=== PATIENT | male | born 1990 | race Caucasian/White ===

== ENCOUNTER 2017-03-12 20:19 | Inpatient (IN) ==
[2017-03-12] MEDS ORDERED: NS 1,000 ML IV ONE (21:00)
[2017-03-12 21:07] LABS: MANUAL DIFF NEEDED? NO
[2017-03-12 21:10] LABS: BASO% 0.2 % (0.0-0.8); EOS# 0.04 X1000 (0.0-0.7); EOS% 0.4 % (0.0-10.0); HEMATOCRIT 45.7 % (42.0-52.0); HEMOGLOBIN 16.2 g/dL (14.0-18.0); IMM GRAN# 0.03 X1000 (0.0-0.04); IMM GRAN% 0.3 % (0.0-0.5); LYMPH# 1.51 X1000 (1.2-3.4); LYMPH% 16.2 % (20.5-51.1); MCH 30.3 PG (27-31); MCHC 35.4 g/dL (33-37); MCV 85.6 FL (81-99); MONO# 0.82 X1000 (0.11-0.59); MONO% 8.8 % (1.7-9.3); MPV 11.3 FL (7.4-10.4); NEUT% 74.1 % (42.2-75.2); PLT 225 X1000 (130-400); RBC 5.34 XMIL (4.7-6.1)
--- NOTE | 2017-03-12 21:35 | Diag Imaging Result Doc PS360 ---
EXAM : HEAD/C-SPINE W/O CONTRAST HISTORY: weakness, AMS, fall TECHNIQUE: CT brain without. CT cervical spine without. Dose reduction protocol. COMPARISON: None. FINDINGS: Head: No parenchymal hemorrhage. No epidural or subdural hematoma. No subarachnoid hemorrhage. No mass identified on this noncontrasted exam. No hydrocephalus. No sinus opacification. Cervical spine: There is good alignment to the cervical spine. No precervical soft tissue swelling. No subluxation. No fracture. IMPRESSION: Head: No hemorrhage. No injury. Cervical spine: No acute fracture. Electronically signed by Flavio Silver 03/12/2017 9:33 PM
[2017-03-12 21:37] LABS: AGAP 18; ALBUMIN 4.7 g/dL (3.5-5.0); ALKALINE PHOSPHATASE 102 U/L (32-122); BUN 8 mg/dL (8-22); CHLORIDE 100 mmol/L (98-107); COSMO 281; GOT 29 U/L (10-34); GPT 45 U/L (10-44); POTASSIUM 4.3 mmol/L (3.5-5.1); SODIUM 142 mmol/L (136-145); TCO2 24 mmol/L (25-35)
[2017-03-12 21:58] LABS: CK INDEX 5.8 (0.0-2.5); CK-MB 14.92 ng/mL (0.0-5.0)
--- NOTE | 2017-03-12 22:08 | Diag Imaging Result Doc PS360 ---
EXAM: CHEST-1 VIEW HISTORY: weakness, AMS TECHNIQUE: Portable upright COMPARISON: None. FINDINGS: The lungs are well expanded. The heart is not enlarged. The vessels are not distended. There are no infiltrates. No effusion identified. IMPRESSION: Negative exam.. Electronically signed by Flavio Silver 03/12/2017 10:05 PM
[2017-03-12] MEDS ORDERED: ATIVAN ONE (22:21)
[2017-03-12 22:41] LABS: URINE CULTURE NEEDED? NO; URINE MICRO REVIEW NEEDED? NO; URINE SOURCE CATH
[2017-03-12 22:45] LABS: BILIRUBIN URINE NEGATIVE (NEGATIVE); BLOOD URINE NEGATIVE (NEGATIVE); COLOR STRAW; GLUCOSE URINE NEGATIVE (NEGATIVE); LEUKOCYTES URINE NEGATIVE (NEGATIVE); NITRITE URINE NEGATIVE (NEGATIVE); PH URINE 5.5; PROTEIN URINE NEGATIVE (NEGATIVE); TURBIDITY URINE CLEAR (CLEAR); UROBILINOGEN URINE NORMAL (NORMAL)
[2017-03-12 22:46] LABS: UR EPITHELIAL CELLS <10 /HPF (<10); URINE BACTERIA NEGATIVE /HPF; URINE RBC <10 /HPF (<10); URINE WBC <10 /HPF (<10)
[2017-03-12 23:11] LABS: UR BARBITUATES QUAL NONE DETECTED (NONE DETECT); UR BENZODIAZEPIN QUAL NONE DETECTED (NONE DETECT); UR CANNABINOIDS QUAL NONE DETECTED (NONE DETECT); UR COCAINE QUAL NONE DETECTED (NONE DETECT); UR METHADONE QUAL NONE DETECTED (NONE DETECT); UR OPIATES QUAL NONE DETECTED (NONE DETECT); UR OXYCODONE QUAL NONE DETECTED (NONE DETECT); UR PCP QUAL NONE DETECTED (NONE DETECT)
--- NOTE | 2017-03-12 23:41 | PROVIDER DOCUMENTATION ---
This chart was entered by Lizett Anderson Scribe, acting as scribe for Guanaco Paulino PA. HPI-Syncope/Dizziness - General Chief Complaint: Syncope Stated Complaint: DIZZY Time Seen by Provider: 03/12/17 20:34 Source: patient Allergies/Adverse Reactions: Patient Allergies Allergy/AdvReac Type Severity Reaction Status Date / Time No Known Allergies Allergy Verified 03/12/17 20:55 Home Medications: Home Medication List Medication Instructions Recorded Confirmed Last Taken Type NK [No Home Medications] 03/12/17 03/12/17 Unknown History - History of Present Illness-Syncope/Dizzy Nature of Presenting Problem: 26 year old M presents to the ED with a cc of high blood pressure. PT staets that [facility] and began not feeling good. PT has his blood pressure taken and it was high. EMS called and pt told them that he did not want to go and he wanted to go home. Pt was then found passed out in his truck in the parking lot. PD was called and told pt that he had to come to the ED. On arrival, pt is very lethargic and having a hard time staying awake. PT denies any drug use. Prior Episodes: reports: single episode today Onset/Duration: reports: this evening Timing: reports: still present Position/Activity at time of episode: reports: sitting Context: reports: became unresponsive Loss of Consciousness: unsure Location of injury. (If syncope resulted in an injury.): reports: none Recently Seen Here or By Another Healthcare Provider: No Review of Systems - Adult - REVIEW OF SYSTEMS - ADULT Constitutional: denies: chills, fever Eyes: reports: no symptoms reported Ears, Nose, Mouth & Throat: reports: no symptoms reported Cardiovascular: denies: chest pain, palpitations Respiratory: denies: cough, shortness of breath Gastrointestinal: denies: nausea, vomiting Genitourinary: reports: no symptoms reported Musculoskeletal: reports: no symptoms reported Integumentary: denies: skin sores/ulcer, skin thickening Neurological: reports: syncope. denies: tremors Psychiatric: reports: no symptoms reported Endocrine: reports: no symptoms reported Hematologic/Lymphatic: reports: no symptoms reported Allergic/Immunologic: reports: no symptoms reported All Other Systems: Reviewed and Negative Past History - Adult - PAST MEDICAL HISTORY-ADULT Review of Records: reports: Nursing Assessment Review, Medications Reviewed Major Childhood Illnesses: reports: denies history Musculoskeletal: reports: intervertebral disc disease Psychiatric: reports: depression - PRIOR SURGERIES/PROCEDURES Surgical/Procedure History: reports: orthopedic (extremity), back/neck - IMMUNIZATION STATUS Childhood Immunizations: See Nurse Assessment Flu Vaccine: See Nurse Assessment - SOCIAL HISTORY Smoking: non-smoker Substance Use: none/never Alcohol Use Frequency: never Physical Exam-General - PHYSICAL EXAM-ADULT Initial Vital Signs Reviewed: Yes - CONSTITUTIONAL General Appearance: lethargic - EYES Eyes: PERRL/EOMI - HEAD, EARS, NOSE, MOUTH & THROAT HENMT: normocephalic/atraumatic - NECK Neck: non-tender - RESPIRATORY Respiratory: chest non-tender, lungs clear, normal breath sounds - CARDIOVASCULAR Cardiovascular: normal peripheral pulses, regular rate, rhythm, no edema - GASTROINTESTINAL (ABDOMEN) Abdominal Exam: soft - MUSCULOSKELETAL Back Exam: normal inspection Extremity: normal range of motion, non-tender - SKIN Integumentary: normal color, normal turgor, warm/dry - NEUROLOGIC Neurologic: grossly normal, no motor/sensory deficits, other (difficult to get an entire physical due to mental state) Progress - PLAN OF CARE/RESULTS Progress/Plan/Lab Results: Vital Signs - 8 hr 03/12/17 20:22 03/12/17 21:24 03/12/17 21:28 Temperature 98.3 F 98.2 F Pulse Rate 76 72 66 Respiratory Rate 18 14 17 Blood Pressure 162/89 142/81 144/75 O2 Sat by Pulse Oximetry 100 96 100 03/12/17 22:46 03/12/17 23:31 Temperature Pulse Rate 67 67 Respiratory Rate 14 16 Blood Pressure 141/65 127/58 O2 Sat by Pulse Oximetry 96 94 L Laboratory Results - last 24 hr 03/12/17 03/12/17 03/12/17 20:50 20:50 20:50 WBC 9.33 RBC 5.34 Hgb 16.2 Hct 45.7 MCV 85.6 MCH 30.3 MCHC 35.4 RDW Std Deviation 11.9 Plt Count 225 MPV 11.3 H Immature Gran % (Auto) 0.3 Neut % (Auto) 74.1 Lymph % (Auto) 16.2 L [place] % (Auto) 8.8 Eos % (Auto) 0.4 Baso % (Auto) 0.2 Immature Gran # (Auto) 0.03 Neut # (Auto) 6.91 H Lymph # (Auto) 1.51 [place] # (Auto) 0.82 H Eos # (Auto) 0.04 Baso # (Auto) 0.02 D-Dimer Sodium Potassium Chloride Carbon Dioxide Anion Gap BUN Creatinine Estimated GFR/1.73 m2 BUN/Creatinine Ratio Glucose Calculated Osmolality Calcium Magnesium Total Bilirubin AST ALT Alkaline Phosphatase Creatine Kinase 256 H Creatine Kinase Index 5.8 H CK-MB (CK-2) 14.92 H Troponin T 0.019 Total Protein Albumin Globulin Albumin/Globulin Ratio Urine Source Urine Color Urine Turbidity Urine pH Ur Specific [place] Urine Protein Ur Glucose (Stick) Ur Ketones (Stick) Urine Blood Urine Nitrite Urine Bilirubin Urobilinogen Dipstick Urine Leukocytes Urine WBC (Auto) Urine RBC (Auto) U Epithel Cells (Auto) Urine Bacteria (Auto) Urine Opiates Screen Ur Oxycodone Screen Ur Methadone, Qual Ur Barbiturates Screen Ur Phencyclidine Scrn U Benzodiazepines Scrn Urine Cocaine Screen U Cannabinoids Screen Plasma/Serum Ethyl Alc 03/12/17 03/12/17 03/12/17 20:50 20:50 20:50 WBC RBC Hgb Hct MCV MCH MCHC RDW Std Deviation Plt Count MPV Immature Gran % (Auto) Neut % (Auto) Lymph % (Auto) [place] % (Auto) Eos % (Auto) Baso % (Auto) Immature Gran # (Auto) Neut # (Auto) Lymph # (Auto) [place] # (Auto) Eos # (Auto) Baso # (Auto) D-Dimer 0.43 Sodium 142 Potassium 4.3 Chloride 100 Carbon Dioxide 24 L Anion Gap 18 BUN 8 Creatinine 0.9 Estimated GFR/1.73 m2 > 60 BUN/Creatinine Ratio 9 Glucose 93 Calculated Osmolality 281 Calcium 10.0 Magnesium 2.0 Total Bilirubin 0.80 AST 29 ALT 45 H Alkaline Phosphatase 102 Creatine Kinase Creatine Kinase Index CK-MB (CK-2) Troponin T Total Protein 7.0 Albumin 4.7 Globulin 2.3 Albumin/Globulin Ratio 2.0 Urine Source Urine Color Urine Turbidity Urine pH Ur Specific [place] Urine Protein Ur Glucose (Stick) Ur Ketones (Stick) Urine Blood Urine Nitrite Urine Bilirubin Urobilinogen Dipstick Urine Leukocytes Urine WBC (Auto) Urine RBC (Auto) U Epithel Cells (Auto) Urine Bacteria (Auto) Urine Opiates Screen Ur Oxycodone Screen Ur Methadone, Qual Ur Barbiturates Screen Ur Phencyclidine Scrn U Benzodiazepines Scrn Urine Cocaine Screen U Cannabinoids Screen Plasma/Serum Ethyl Alc 03/12/17 03/12/17 22:25 22:25 WBC RBC Hgb Hct MCV MCH MCHC RDW Std Deviation Plt Count MPV Immature Gran % (Auto) Neut % (Auto) Lymph % (Auto) [place] % (Auto) Eos % (Auto) Baso % (Auto) Immature Gran # (Auto) Neut # (Auto) Lymph # (Auto) [place] # (Auto) Eos # (Auto) Baso # (Auto) D-Dimer Sodium Potassium Chloride Carbon Dioxide Anion Gap BUN Creatinine Estimated GFR/1.73 m2 BUN/Creatinine Ratio Glucose Calculated Osmolality Calcium Magnesium Total Bilirubin AST ALT Alkaline Phosphatase Creatine Kinase Creatine Kinase Index CK-MB (CK-2) Troponin T Total Protein Albumin Globulin Albumin/Globulin Ratio Urine Source CATH Urine Color STRAW Urine Turbidity CLEAR Urine pH 5.5 Ur Specific [place] 1.000 Urine Protein NEGATIVE Ur Glucose (Stick) NEGATIVE Ur Ketones (Stick) NEGATIVE Urine Blood NEGATIVE Urine Nitrite NEGATIVE Urine Bilirubin NEGATIVE Urobilinogen Dipstick NORMAL Urine Leukocytes NEGATIVE Urine WBC (Auto) <10 Urine RBC (Auto) <10 U Epithel Cells (Auto) <10 Urine Bacteria (Auto) NEGATIVE Urine Opiates Screen NONE DETECTED Ur Oxycodone Screen NONE DETECTED Ur Methadone, Qual NONE DETECTED Ur Barbiturates Screen NONE DETECTED Ur Phencyclidine Scrn NONE DETECTED U Benzodiazepines Scrn NONE DETECTED Urine Cocaine Screen NONE DETECTED U Cannabinoids Screen NONE DETECTED Plasma/Serum Ethyl Alc Orders Category Date Time Status Saline Loc NOW Care 03/12/17 20:59 Active CHEST-1 VIEW [RAD] Stat Exams 03/12/17 20:59 Completed HEAD/C-SPINE W/O CONTRAST [CT] Stat Exams 03/12/17 21:00 Completed ALCOHOL BLOOD Stat Lab 03/12/17 20:50 Completed CBC WITH ELECTRONIC DIFF [HEME] Stat Lab 03/12/17 20:50 Completed CK PROFILE [SP CHEM] Stat Lab 03/12/17 20:50 Completed CK PROFILE [SP CHEM] Stat Lab 03/12/17 23:32 Uncollected COMPREHENSIVE METABOLIC PANEL [CHEM] Stat Lab 03/12/17 20:50 Completed D-DIMER [CHEM] Stat Lab 03/12/17 20:50 Completed MAGNESIUM [CHEM] Stat Lab 03/12/17 20:50 Completed TROPONIN T Stat Lab 03/12/17 20:50 Completed TROPONIN T Stat Lab 03/12/17 23:32 Uncollected URINALYSIS W/POSS RFLX CULT-1 [URINALYSIS] Stat Lab 03/12/17 22:25 Completed URINE DRUG SCREEN Stat Lab 03/12/17 22:25 Results 0.9% Sodium Chloride Inj [Ns] 1,000 ml Med 03/12/17 21:00 Discontinued IV 999 mls/hr Lorazepam [Ativan] Med 03/12/17 22:21 Discontinued 2 mg .ROUTE .STK-MED ONE EKG [EKG] Stat Ther 03/12/17 20:53 Ordered EKG [EKG] Stat Ther 03/12/17 23:32 Ordered Pt keeps saying that he wants to leave and go home and is trying to leave the ED. Pt is refusing to give a urine sample Pt continues to be altered in the room. He has tried to get up and leave several times even though he is passing out in the bed. He keeps stating that he wants to drive to [place]. This pt is not able to drive at this time and he was sedated because he continued to fight c the nursing staff. Will admit for AMS. Result Diagrams: 03/12/17 20:50 03/12/17 20:50 - EKG 1 Time of EKG reading by physician:: 20:40 EKG Read and Signed by:: Chet Muñoz EKG Interpretation (*Must complete 3 of following elements*): Normal Rate: 65 Rhythm: NSR Comments: early repolarization - CONSULTS/PCP/HOSPITALIST Notification #1 *Consult/PCP/Hospitalist*: Dr. Silveira Time Discussed: 23:39 Consult Disposition: Admit Departure - Departure Date of Disposition Decision: 03/12/17 Time of Disposition Decision: 23:40 DIAGNOSIS: Altered mental status, unspecified Qualifiers: Altered mental status type: disorientation Qualified Code(s): R41.0 - Disorientation, unspecified Disposition: ADMITTED INPATIENT 09 Certified Medical Emergency: Emergent Condition: Stable Referrals and Follow-Ups: None,PCP [Primary Care Provider] - - Critical Care Note This patient required my direct & personal management of CC.: No Attestation - Physician/ RIRI Attestation Patient care was provided by Advanced Practice Provider:: Yes Advanced Practice Provider:: Guanaco Paulino Advanced Practice Provider documentation review:: The Mid-level provider documentation, treatment plan and medical decision making was reviewed by the physician who agrees with all treatment and medical decision making by the MLP. The physician spent face to face time with patient:: Yes Advanced Practice Provider documentation review:: Supervising physician onsite and consulted in the evaluation and care of this patient. The physician did have a face to face encounter with the patient. This chart was documented by the indicated scribe, (Lizett Anderson Scribe) and accurately reflects the services I performed and decisions made by Jefferson sanz Steven Wesley, PA, as attested by the provider's signature.
[2017-03-13 00:01] LABS: ALLEN TEST YES; BLOOD TYPE ARTERIAL; DRAW SITE R RADIAL; METHB 1.1 % (0.0-1.5); O2(CT) 20.5 mL/dL (15.0-23.0); PCO2(98.6) 40 mmHg (35-45); PO2(98.6) 78 mmHg (60-100); SAMPLE BLOOD; THB 15.3 g/dL (11.5-17.4); pH(98.6) 7.43 (7.35-7.45)
[2017-03-13 00:02] LABS: MODALITY ROOM AIR
[2017-03-13 00:46] LABS: UR AMPHETAMINES QUAL NONE DETECTED (NONE DETECT)
[2017-03-13] MEDS ORDERED: ZOFRAN IV PRN (02:49)
[2017-03-13] MEDS ORDERED: D50W SYRINGE ONE (03:16)
[2017-03-13] MEDS ORDERED: SODIUM CHLORIDE 0.9% 10 ML ONE (03:17)
[2017-03-13] MEDS: NS 1,000 ML IV SCH ×3 (03:31→19:13)
--- NOTE | 2017-03-13 04:01 | HISTORY AND PHYSICAL ---
CHIEF COMPLAINT: Near syncope. HISTORY OF PRESENT ILLNESS: A 26-year-old male presents to the emergency room stating his complaint is blood pressure. States he was [facility] the community [facility], started having back pain related to herniated disks. Apparently, the patient's blood pressure was taken and high. EMS was called and the patient told them that he did not want to go to the hospital. He wanted to go home. Patient was then found passed out in his truck in the parking lot. Police department was called, told the help patient that he had to come to the ER. On arrival, he was lethargic, having a difficult time staying awake. He denies any illicit drug use or abuse. However, he states that he has been seen at [place] and URINALYSIS, eventually being diagnosed with conversion disorder at [facility]. His laboratory data was grossly normal other than an elevated CK of 256, a CK index of 5.8, and a CK-MB of 14.92. Troponin was 0.019. The patient is able to answer all questions appropriately. However, he does keep his eyes closed and states over and over that he wants to go home. His blood pressure was 162/89 at the time of arrival. His urine drug screen was negative. He will be admitted in observation status for further evaluation and treatment. PAST MEDICAL HISTORY: 1. Low back pain due to herniated disks. 2. Questionable conversion disorder. 3. Depression with no treatment. PREVIOUS SURGICAL HISTORY: The patient states that he had "laser back surgery". SOCIAL HISTORY: He lives with his parents. Unemployed related to back pain. Does not go to school. Denies tobacco, alcohol, or illicit drug use or abuse. FAMILY HISTORY: Denied any chronic health issues in parents. ALLERGIES: No known drug allergies. HOME MEDICATIONS: No home medications. REVIEW OF SYSTEMS: Fourteen point review of systems conducted with the patient. He denied chest pain, nausea, vomiting, diarrhea, constipation, genitourinary complaint. Was positive for lower back pain. Denied headache. Positive for dizziness. However, he denies loss of consciousness. PHYSICAL EXAMINATION: VITAL SIGNS: Temperature 98.2 degrees, pulse 73, respirations 21, blood pressure 122/48, oxygen saturation 97% on room air. GENERAL: A 26-year-old, male lying on the ER stretcher. Appears to have a hard time keeping his eyes open for conversation but answers all questions appropriately. He is oriented x3. He is able follow all commands. HEENT: Head is atraumatic, normocephalic. Pupils equal, round, react to light. Extraocular eye movement intact. Sclerae are anicteric. Conjunctivae are pink. Oral mucosa is moist. NECK: Supple. No JVD. No thyromegaly. Trachea is midline. No cervical lymphadenopathy. CARDIAC: S1-S2 appreciated. No murmurs, gallops, rubs. LUNGS: Clear to auscultation. No rhonchi, wheezes, or rales. Symmetrical rise and fall with respirations. ABDOMEN: Soft, nondistended, nontender. Bowel sounds present in all 4 quadrants, normoactive. No pulsatile mass. No organomegaly. EXTREMITIES: No clubbing, cyanosis, or edema. There are 2+ pedal pulses. NEUROLOGICAL: Answers all questions appropriately. Does seem somewhat somnolent, closing his eyes several times during conversation. However, he was interviewed after midnight. States that he just wants to go home. Does not want admission. GENITOURINARY: Patient voids, otherwise deferred. SKIN: Warm, dry, intact. No acute lesions or rash. DIAGNOSTIC DATA: Chest x-ray NAD. CT of the head and C-spine NAD. LABORATORY DATA: CBC within normal limits. D-dimer 0.43. ABG within normal limits. ALT 45. CK 256, CK index 5.8, CK-MB 14.92, troponin 0.019. Urine and toxicology screen unremarkable. ASSESSMENT AND PLAN: 1. Syncope versus near syncope of unknown etiology. Patient denies drugs. He did have a mild elevation of his CK, CK index, and CK-MB. We will place in observation status on telemetry. Give gentle fluid hydration. 2. Questionable conversion disorder. We will monitor. 3. Depression without treatment, aware. 4. Elevated CK profile. We will consult Dr. Bonilla. Echocardiogram in the morning. Trend cardiac enzymes. 5. Chronic back pain, aware. 6. Further recommendations per patient's clinical course. Dictated by CORY Lind for Kenneth Silveira MD Seen and examined by me; discussed case with [employer]. cc: CORY Lind MD [facility]
--- NOTE | 2017-03-13 05:07 | EKG Report ---
Test Performed on : 03/12/2017 11:46:28 PM Test Reason : repeat Blood Pressure : / mmHG Vent. Rate : 074 BPM Atrial Rate : 074 BPM P-R Int : 140 ms QRS Dur : 100 ms QT Int : 378 ms P-R-T Axes : 054 037 042 degrees QTc Int : 419 ms Normal sinus rhythm. Early repolarization Normal ECG No previous ECGs available Unconfirmed Result
[2017-03-13] MEDS ORDERED: LOVENOX SUBQ SCH (06:00)
--- NOTE | 2017-03-13 07:04 | EKG Report ---
Test Performed on : 03/13/2017 06:00:28 AM Test Reason : chest pain Blood Pressure : / mmHG Vent. Rate : 058 BPM Atrial Rate : 058 BPM P-R Int : 144 ms QRS Dur : 100 ms QT Int : 384 ms P-R-T Axes : 047 047 031 degrees QTc Int : 376 ms Sinus bradycardia. Early repolarization Otherwise normal ECG When compared with ECG of 12-MAR-2017 23:46, (Unconfirmed) Nonspecific T wave abnormality inferior lead III (now flat) Confirmed by Brian Paulino DO ([id number]) on 03/16/2017 7:51:56 PM
[2017-03-13 08:07] LABS: ALLEN TEST YES; BE 2.8 mmoll (-3.0-3.0); BLOOD TYPE ARTERIAL; DRAW SITE R RADIAL; METHB 1.2 % (0.0-1.5); MODALITY ROOM AIR; O2(CT) 22.5 mL/dL (15.0-23.0); PCO2(98.6) 40 mmHg (35-45); PO2(98.6) 112 mmHg (60-100); SAMPLE BLOOD; SAO2 99.5 % (95.0-100.0); THB 16.5 g/dL (11.5-17.4); pH(98.6) 7.44 (7.35-7.45)
--- NOTE | 2017-03-13 12:45 | CONSULTATION ---
DATE OF CONSULTATION: 03/13/2017 REASON FOR CONSULTATION: The patient is seen in consultation at the request of Dr. Tejada for evaluation of unresponsiveness. HISTORY OF PRESENT ILLNESS: This is a 26-year-old, right-handed male with history of low back pain and apparent recent diagnosis of conversion disorder at [facility], who was admitted yesterday with complaints that he needs to get his blood pressure evaluated. Apparently he was at the pool and he started having some back pain and his blood pressure was elevated at some point. He refused to go to the hospital. He was subsequently found passed out in his truck. On arrival to the ED he was lethargic and having a hard time staying awake. He has been asking to go home repeatedly since he has been here. He has had an episode where he had apparent loss of consciousness or unresponsiveness in front of the nurses, but he did not fall; he was helped to the bed. The nurse reports that there was sternal rub but he was not responding to that, although there was some facial grimace. The patient tells me that he has had long-standing back pain and has been trying to have surgery for this. He reports that the surgeons at [facility] said they would like to operate but he needs to be cleared from a psychiatric standpoint first. He says that he was hospitalized at [facility] about 2.5 months ago and diagnosed with conversion disorder, having similar symptoms to what he is having now, although he cannot further elaborate. He says he does not recall. He says for a while now he has been having periods at times where his back pain acutely gets so severe that it makes him feel like he is generally weak all over with a headache, confusion, and the sensation that he is going to pass out. He says if he lies down the sensations usually fade after about 30 minutes. He is not sure if he does sometimes pass out. He does report that he has passed out at times, at least once in doctor's office. He does not have a history of high blood pressure per his report. No history of seizures. PAST MEDICAL HISTORY: Low back pain reported to be due to herniated disk, reports a diagnosis of conversion disorder 2.5 months ago at [facility], possible depression. SOCIAL HISTORY: He says he lives alone. 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 The job was in [place]. Denies tobacco, alcohol, or illicit drug use. FAMILY HISTORY: Noncontributory. No seizures. ALLERGIES: No known drug allergies. HOME MEDICATION: None. REVIEW OF SYSTEMS: The balance of 12 was conducted and was positive only for the low back pain, headache, feeling generally weak, and confused. PHYSICAL EXAMINATION: Vital Signs: Afebrile since his admission. Blood pressure 113-162 over 40s to 90s. Pulse 58-76. Respirations 18. General: This is male, supine in bed, asleep apparently when I enter the room. No acute distress. HEENT: All is normal. Neck: Supple. No meningismus. Trachea midline. Cardiovascular: Regular rate and rhythm. Intact pulses. No edema. Lungs: No increased work of breathing. Normal chest rise and expansion. No audible wheezing or rales. Abdomen: Soft. He grimaces and moans out in pain to palpation but does not guard. Extremities: Warm and well perfused. No edema. Neurologic Exam: Mental status: He is asleep initially. Does not arouse to loud voice but does arouse to the addition of light tactile shoulder stimulation. He regards. He is slow to answer all questions and is whispering as well as stuttering at times. He is able to articulate his thought processes completely although, again, very slowly and with stuttering. He can give significant detail and history. Completely oriented with the exception of today's date which he was 1 day off. Naming is intact. Language is intact. Appropriately conversant. Attentive. Cranial nerves: PERRL, 3 mm both eyes. Conjugate gaze. Ocular movements are full. Visual mcintosh full to direct confrontational testing. Face is symmetric with equal activation, although he requires significant encouragement. Facial sensation intact. Tongue is midline. Palate elevates symmetrically. Shoulder shrug is full but requires encouragement. Motor exam: Normal bulk and tone. No drift. His strength is fully intact, 5/5 in the upper and lower extremities, both distally and proximally. There is no fatigable weakness. Sensory exam: There are no abnormalities to testing. Reflexes are 2+ symmetric in the upper extremities, 2 + of the right knee and ankle jerk, slight brisk 2+ left knee and ankle jerk. No clonus. Toes are downgoing. No Carmen's. Coordination: No incoordination was uncovered. DIAGNOSTICS: Head CT was personally reviewed. There are no acute findings. Cervical spine CT showed no acute fracture. EKG showed sinus bradycardia with a rate of 58 and early repolarization. Otherwise normal and unconfirmed result. Chest x-ray was negative. LABS: Reviewed fully in the chart. The CK on admission was 256, now 200. CK- MB 14.92. Troponin negative. TSH 3.61. ALT 45, AST normal. Chemistry panel otherwise unremarkable. Urinalysis and toxicology screen were negative. ASSESSMENT AND PLAN: This is a 26-year-old, right-handed, male with a history of low back pain, being followed at [facility] for this, and also he reports diagnosis of conversion disorder with similar symptoms to what he is presenting with today, this was about 2.5 months ago at [facility], presenting with complains of generalized weakness, headache, confusion, and lightheadedness with 1 spell of reported unresponsiveness in the hospital. His neurological exam is essentially nonfocal which is reassuring. He does require some encouragement on some of the testing. Head CT did not show any acute findings, also reassuring. Will obtain an EEG given his reports of feeling confused as well as his apparent unresponsiveness here in the hospital and possible events off and on for some time now at home, although I do not think that these are likely to be seizures. I have also requested records from [facility], particularly for his recent visit there that he reports he was diagnosed conversion disorder. Based on his negative head CT and essentially normal neurologic exam, I do not think we need to proceed with an MRI, at least at this time. Let's see what the records show; it is possible he recently had an MRI at [facility]. Thank you for this consultation. cc: Radha Villafana MD [facility]
--- NOTE | 2017-03-13 13:15 | CONSULTATION ---
DATE OF CONSULTATION: 03/13/2017 IMPRESSION: 1. Abnormal CPK-MB Index with normal serial troponins. Suspect likely noncardiac. ECG shows normal variant early repolarization. There has been no chest pain. 2. Chronic back discomfort. 3. Reported history of conversion disorder. 4. Reported fall following admission. Questionable pause. RECOMMENDATIONS: 1. Echocardiography. 2. If echocardiography normal, no further CV testing needed. HISTORY: This 26-year-old white male with past history of chronic back disorder and reported conversion disorder earlier this year was admitted to the emergency room because of back discomfort. Apparently, he had some episodes of syncope. Details are sketchy, and he tends to talk with his eyes closed in a very low voice. He relates he came to the hospital because of back pain and a markedly elevated blood pressure. He relates he is from [place], [place], and relates that he was swimming in the [place] area. His blood pressure became elevated, and he became concerned. EMS was called and the patient declined to go to the hospital. Patient relates that he was told that he had to come to the hospital. Records indicate that he had subsequently passed out in the parking lot several times, and the Police Department was called and assisted in convincing him to come to the emergency room. In emergency room, he was lethargic and had difficulty staying awake. However, his blood pressure was 162/89 at that time. There has been no chest pain. He is not aware of any previous cardiac problems. He was admitted for observation and reported while on the floor fell. He was brought to the ICU for close observation. It is noteworthy that he was hospitalized early this year in [place], [place], and subsequently had evaluation at [facility] and was felt to have conversion disorder. 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 He is currently unemployed. Laboratory data available from [place] indicates a similar CPK-MB index and a troponin of 0.019 at that time. PAST MEDICAL HISTORY: 1. 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 2. Conversion disorder as noted above. 3. Depression. PAST SURGICAL HISTORY: Laser back surgery. ALLERGIES: No known drug allergies. MEDICATIONS: He is on no medications prior to admission. SOCIAL HISTORY: He lives with his parents. 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 He does not smoke or drink alcohol. FAMILY HISTORY: Negative for premature coronary disease. REVIEW OF SYSTEMS: Pulmonary: Negative. Gastrointestinal: Negative. Constitutional: Negative. Remainder of review of systems negative/noncontributory. 14 total systems reviewed. PHYSICAL EXAMINATION: General: This is an adult male in no distress who, during the interview process, keeps his eyes closed and talks in a low voice. Vital Signs: As recorded include a heart rate of 95 with ECG monitor showing sinus rhythm. Blood pressure 110/60. HEENT: Extraocular muscles appear intact. Mucous membranes moist. Neck: Supple. No jugular venous distention. There are no carotid bruits. Chest: Clear to auscultation. Cardiac Exam: Reveals a regular rate and rhythm without appreciable murmur or gallop. Abdomen: Soft, nontender. Bowel sounds normal. Extremities: Without edema. Neurologic: Exam reveals him to be alert and fully oriented. Speech is fluent. He moves all 4 extremities equally well. Skin: Warm and dry. Psych: Exam reveals him to be somewhat anxious. He keeps his eyes closed and talks in a very low voice. EKG demonstrates sinus rhythm and normal variant early repolarization. cc: Jem Morejon MD
--- NOTE | 2017-03-13 14:08 | EEG REPORT ---
DATE: 03/13/2017 BACKGROUND INFORMATION/TECHNIQUE: A digitally recorded EEG is obtained with 1 additional channel for EKG. HISTORY OF PRESENT ILLNESS: A 26-year-old, right-handed, male admitted with altered mental status, periods of presyncope and/or syncope with lightheadedness, dizziness and headache, which come on when his low-back pain acutely worsens. He reports a recent diagnosis of conversion disorder at [facility] for similar symptoms. EEG is ordered to detect evidence of seizures or increased propensity for seizure. EEG FINDINGS: A well-formed 10 Hz posterior dominant alpha rhythm is noted symmetrically in the occipital regions and attenuates with eye opening. The background is well- organized and consists of mixed alpha and beta range frequencies. No abnormal diffuse slowing. No focal slowing. No epileptiform discharges and no seizures are seen. Hyperventilation was not performed. Photic stimulation induced a normal photic driving response. The patient becomes drowsy and enters into stage II sleep with qualitatively normal sleep architecture. EKG reveals regular R to R intervals. IMPRESSION AND CLINICAL CORRELATION: Normal routine EEG in the awake, drowsy, and sleep states. Of note, a normal EEG does not rule out epilepsy. Clinical correlation is advised. cc: MD Honey Moore MD [facility]
--- NOTE | 2017-03-13 14:15 | ECHO REPORT ---
ORDER DATE: 03/13/2017 INDICATION: Elevated CK index, syncope. FINDINGS: 1. Right atrium is mildly enlarged at 4.4 cm. 2. Mild tricuspid regurgitation. 3. Normal RV size and systolic function. 4. Mild pulmonic insufficiency. 5. Normal left atrial size at 3.6 cm. 6. No mitral prolapse. Trace mitral regurgitation. 7. Normal LV size, end-diastolic dimension of 4.9 cm. Mild left ventricular hypertrophy with a posterior and interventricular septal wall thickness 1.3 cm each. Normal LV systolic function. Estimated EF of 60% with normal wall motion. 8. Aortic valve opens well. No evidence of stenosis or insufficiency. The valve is trileaflet. 9. Aorta appears normal on visualized segments. 10. No pericardial effusion seen. cc: MD Yoseph Rdz CRNP
[2017-03-13 20:54] VITALS: BP 147/58
--- NOTE | 2017-03-23 13:26 | DISCHARGE SUMMARY ---
ADMISSION DATE: 03/13/2017 DISCHARGE DATE: 03/13/2017 FINAL DISCHARGE DIAGNOSES: 1. Near syncope. 2. Depression. 3. Conversion disorder. 4. Chronic back pain. CONSULTATIONS REQUESTED DURING THIS HOSPITAL STAY: 1. Cardiology consultation. 2. Neurology consultation. HOSPITAL COURSE: Mr. Pelayo is a 26-year-old male with a history of conversion disorder and syncope, who presented to the ER after having a syncopal episode. The patient was admitted to the Hospitalist Service and a 2-dimensional echocardiogram was done. It was noted to be normal. Cardiology also assessed the patient, as well as the neurologist. After a completely negative workup, this was discussed with the patient and the family, and they stated that whenever the patient is having a flare-up of his conversion disorder, he has syncopal episodes. It was recommended that the patient be discharged and to follow up with his psychiatrist and other physicians at [facility]. The patient was cleared for discharge on 03/13/2017, to follow up with his physicians at [facility]. DISCHARGE MEDICATIONS: None. FOLLOWUP INSTRUCTIONS: The patient has been advised to follow up at [facility] with his psychiatrist and general practitioner. cc: Honey Tejada MD
--- NOTE | 2017-05-17 10:32 | ED EKG INTERP ---
This chart was entered by Lizett Anderson Scribe, acting as scribe for Chet Muñoz MD. EKG Interpretation - EKG Time of EKG reading by physician:: 00:17 EKG Read and Signed by:: Chet Muñoz EKG Interpretation (*Must complete 3 of following elements*): Normal Rate: 74 Rhythm: NSR Comments: early repolarization Attestation - Physician/ RIRI Attestation Patient care was provided by Advanced Practice Provider:: Yes Advanced Practice Provider documentation review:: The Mid-level provider documentation, treatment plan and medical decision making was reviewed by the physician who agrees with all treatment and medical decision making by the MLP. The physician spent face to face time with patient:: No Advanced Practice Provider documentation review:: Supervising physician onsite and consulted in the evaluation and care of this patient. The physician did not have a face to face encounter with the patient. This chart was documented by the indicated scribe, (Lizett Anderson Scribe) and accurately reflects the services I performed and decisions made by me, Chet Muñoz MD, as attested by the provider's signature.
== END 2017-03-13 20:30 | disposition home or self-care (01) ==
LOC: ED 20:19 → 4N 03-13 02:38 → SUATTDRO 03-13 02:38 → ICU 03-13 08:15
PROVIDERS: ATTEND Internal Medicine

== ENCOUNTER 2019-07-25 06:00 | Inpatient (IN) ==
[2019-07-25] MEDS ORDERED: NS 1,000 ML IV ONE ×3 (06:23→08:58)
[2019-07-25] MEDS ORDERED: ROBITUSSIN-AC PO ONE (06:23)
[2019-07-25] MEDS ORDERED: TORADOL IV ONE (06:23)
--- NOTE | 2019-07-25 06:27 | PROVIDER DOCUMENTATION ---
HPI-General Adult - General Chief Complaint: General Adult Stated Complaint: GENERAL ILLNESS Time Seen by Provider: 07/25/19 06:01 Source: patient Allergies/Adverse Reactions: Patient Allergies Allergy/AdvReac Type Severity Reaction Status Date / Time No Known Allergies Allergy Verified 02/22/19 17:26 Home Medications: Home Medication List Medication Instructions Recorded Confirmed Last Taken Type Gabapentin 600 mg PO BID 02/22/19 07/25/19 06/22/19 22:00 History 600 mg Levothyroxine Sodium 125 mcg PO HS 02/22/19 07/25/19 06/22/19 22:00 History 125 mcg Omeprazole 40 mg PO DAILY 02/22/19 07/25/19 06/22/19 10:00 History 40 mg Promethazine [Phenergan] 25 mg PO Q6H PRN PRN #30 tab 03/06/19 07/25/19 Unknown Rx Tramadol [Ultram] 50 mg PO Q6H PRN PRN tab 03/06/19 07/25/19 06/23/19 04:20 Rx 50 mg Amlodipine Besylate [Norvasc] 5 mg PO DAILY 06/23/19 07/25/19 06/22/19 10:00 History 5 mg Baclofen [Lioresal] 10 mg PO TID 06/23/19 07/25/19 06/23/19 09:00 History 10 mg Benzonatate [Tessalon Perle] 100 mg PO Q8H PRN PRN 06/23/19 07/25/19 06/07/19 20:20 History 100 mg Carboxymethylcellulose Sodium 3 drp OPHTHALMIC (EYE) TID 06/23/19 07/25/19 06/22/19 20:00 History [Refresh Tears] 2 drops Duloxetine HCl 60 mg PO DAILY 06/23/19 07/25/19 06/22/19 10:00 History 60 mg Hydrocodone/Acetaminophen [Richardson 1 ea PO Q6H PRN PRN 06/23/19 07/25/19 06/22/19 05:16 History 10-325 Tablet] 1 tab Lamotrigine [Lamictal] 50 mg PO BID 06/23/19 07/25/19 06/23/19 09:00 History 100 mg Meclizine [Antivert] 12.5 mg PO DAILY 06/23/19 07/25/1906/22/19 10:00 History 12.5 mg Melatonin 12 mg PO HS 06/23/19 07/25/19 06/22/19 22:00 History 12 mg Naproxen 500 mg PO Q8H PRN PRN 06/23/19 07/25/19 06/21/19 02:50 History 500 mg Polyethylene Glycol 3350 17 gm PO DAILY 06/23/19 07/25/19 06/22/19 10:00 History 17 gm Valsartan 80 mg PO BID 06/23/19 07/25/19 06/22/19 17:00 History - History of Present Illness -Gen Adult Nature of Presenting Problems: Pt presents with cough and fever, started tonight, coming from NH, pt denies hollins, cp, sob, ap, n/v/d. Pt is lying in bed in no acute distress. Location of Pain/Injury: reports: none Pain Radiation: reports: no radiation Quality of Pain: reports: none Severity: reports: moderate Onset/Duration: reports: 1-3 hours ago Timing: reports: still present Context/Activities at Onset: reports: none Modifying Factors: improves with: nothing Associated Symptoms: reports: cough, fever/chills Similar Symptoms Previously?: No Recently seen or treated by another doctor?: No Review of Systems - Adult - REVIEW OF SYSTEMS - ADULT Constitutional: reports: see HPI Eyes: reports: no symptoms reported Ears, Nose, Mouth & Throat: reports: no symptoms reported Cardiovascular: reports: no symptoms reported Respiratory: reports: see HPI Gastrointestinal: reports: no symptoms reported Genitourinary: reports: no symptoms reported Musculoskeletal: reports: no symptoms reported Integumentary: reports: no symptoms reported Neurological: reports: no symptoms reported Psychiatric: reports: no symptoms reported Endocrine: reports: no symptoms reported Hematologic/Lymphatic: reports: no symptoms reported Allergic/Immunologic: reports: no symptoms reported All Other Systems: Reviewed and Negative Past History - Adult - PAST MEDICAL HISTORY-ADULT Review of Records: reports: Old Records Reviewed, Nursing Assessment Review, Medications Reviewed, Social history reviewed & non-contributory. Major Childhood Illnesses: reports: denies history Cardiovascular: reports: HTN Respiratory: reports: denies history Gastrointestinal: reports: denies history Obstetrical/Gynecological: reports: denies history Genitourinary: reports: denies history Musculoskeletal: reports: intervertebral disc disease Neurological: reports: denies history Psychiatric: reports: depression Endocrine/Immune: reports: denies history Other Conditions: reports: denies history - PRIOR SURGERIES/PROCEDURES Surgical/Procedure History: reports: hernia repair, orthopedic (extremity) (ann smith), back/neck - IMMUNIZATION STATUS Childhood Immunizations: See Nurse Assessment Flu Vaccine: See Nurse Assessment - FAMILY HISTORY Family History: reviewed, not pertinent Physical Exam-General - PHYSICAL EXAM-ADULT Initial Vital Signs Reviewed: Yes - CONSTITUTIONAL General Appearance: appears well - EYES Eyes: PERRL/EOMI - HEAD, EARS, NOSE, MOUTH & THROAT HENMT: normocephalic/atraumatic - NECK Neck: normal inspection - RESPIRATORY Respiratory: no respiratory distress, no accessory muscle use, crackles - CARDIOVASCULAR Cardiovascular: regular rate, rhythm - GASTROINTESTINAL (ABDOMEN) Abdominal Exam: normal bowel sounds, non tender, soft - LYMPHATIC Lymphatic: no adenopathy - MUSCULOSKELETAL Back Exam: normal inspection Extremity: normal inspection - SKIN Integumentary: normal color - NEUROLOGIC Neurologic: grossly normal - PSYCHIATRIC Psych/Mental Status: normal mood/affect Progress - PLAN OF CARE/RESULTS Progress/Plan/Lab Results: Vital Signs - 8 hr 07/25/19 06:14 Temperature 98.5 F Pulse Rate 120 H Respiratory Rate 22 Blood Pressure 108/56 O2 Sat by Pulse Oximetry 95 Orders Category Date Time Status Cardiac Monitoring DIRECTED Care 07/25/19 06:22 Ordered IV Insertion ORDERED Care 07/25/19 06:22 Ordered Notify MD of + Sepsis Screen NOW Care 07/25/19 06:22 Ordered Notify Physician As Ordered Care 07/25/19 06:22 Ordered CHEST-1 VIEW [RAD] Stat Exams 07/25/19 06:22 Ordered BLOOD CULTURE [BLDCUL] Stat Lab 07/25/19 06:22 Uncollected CBC WITH DIFF [HEME] Stat Lab 07/25/19 06:22 Uncollected CK PROFILE [SP CHEM] Stat Lab 07/25/19 06:22 Uncollected COMPREHENSIVE METABOLIC PANEL [CHEM] Stat Lab 07/25/19 06:22 Uncollected INFLUENZA SCREEN A/B Stat Lab 07/25/19 06:23 Uncollected LACTATE, PLASMA [CHEM] Q3H Lab 07/25/19 06:30 Uncollected LACTATE, PLASMA [CHEM] Q3H Lab 07/25/19 09:30 Uncollected LACTATE, PLASMA [CHEM] Q3H Lab 07/25/19 12:30 Uncollected PROTIME WITH INR [COAG] Stat Lab 07/25/19 06:22 Uncollected PTT [COAG] Stat Lab 07/25/19 06:22 Uncollected TROPONIN T Stat Lab 07/25/19 06:22 Uncollected URINALYSIS W/POSS RFLX CULT [URINALYSIS] Stat Lab 07/25/19 06:22 Uncollected Guaifenesin/Codeine [Robitussin-AC] Med 07/25/19 06:23 Once 10 ml PO NOW ONE Ketorolac [Toradol] Med 07/25/19 06:23 Once 30 mg IV NOW ONE Ns 1000 ml IV Bolus X1 Med 07/25/19 06:23 Ordered 0.9% Sodium Chloride Inj [Ns] 1,000 ml IV 999 mls/hr Oxygen Device Stat Oth 07/25/19 06:22 Ordered Result Diagrams: 07/25/19 06:10 07/25/19 06:10 - CONSULTS/PCP/HOSPITALIST Notification #1 *Consult/PCP/Hospitalist*: Jeaneth Time Discussed: 09:40 (Admit to Dr Pastor) Consult Disposition: Will see in ED - CHANGE OF SHIFT REPORT (ED Provider) 1 Report Given and Care Transferred to:: Dr. Bowden Time of Transfer: 07:00 Items Pending: Labs, XRAY Results Departure - Departure Date of Disposition Decision: 07/25/19 Time of Disposition Decision: 09:49 DIAGNOSIS: Sepsis Qualifiers: Sepsis type: sepsis due to unspecified organism Sepsis acute organ dysfunction status: without acute organ dysfunction Qualified Code(s): A41.9 - Sepsis, unspecified organism Disposition: ADMITTED INPATIENT 09 Certified Medical Emergency: Emergent Condition: Serious Referrals and Follow-Ups: Eric Bishop MD [Primary Care Provider] - - Critical Care Note This patient required my direct & personal management of CC.: No Attestation - Physician/ RIRI Attestation Patient care was provided by Advanced Practice Provider:: No The physician spent face to face time with patient:: Yes Advanced Practice Provider documentation review:: Supervising physician onsite and consulted in the evaluation and care of this patient. The physician did have a face to face encounter with the patient.
[2019-07-25 06:46] LABS: BASO# 0.01 X1000 (0.0-0.2); BASO% 0.1 % (0.0-0.8); EOS# 0.01 X1000 (0.0-0.7); EOS% 0.1 % (0.0-10.0); HEMATOCRIT 44.1 % (42.0-52.0); HEMOGLOBIN 15.3 g/dL (14.0-18.0); IMM GRAN# 0.02 X1000 (0.0-0.04); IMM GRAN% 0.2 % (0.0-0.5); LYMPH# 0.71 X1000 (1.2-3.4); LYMPH% 8.5 % (20.5-51.1); MCH 29.5 PG (27-31); MCHC 34.7 g/dL (33-37); MONO# 0.87 X1000 (0.11-0.59); MONO% 10.4 % (1.7-9.3); MPV 10.9 FL (7.4-10.4); NEUT# 6.73 X1000 (1.4-6.5); NEUT% 80.7 % (42.2-75.2); PLT 174 X1000 (130-400); RBC 5.19 XMIL (4.7-6.1); RDW 11.9 % (11.5-14.5); WBC 8.35 X1000 (4.8-10.8)
[2019-07-25 06:53] LABS: INR 0.96; PROTIME 12.9 Seconds (11.0-16.0)
[2019-07-25 06:54] LABS: PTT 25.7 Seconds (22.3-41.8)
--- NOTE | 2019-07-25 07:07 | Diag Imaging Result Doc PS360 ---
EXAM: CHEST-1 VIEW HISTORY: cough, fever TECHNIQUE: Single view COMPARISON: 06/23/2019 FINDINGS: Poor inspiratory effort. No cardiomegaly. There is mild vascular distention. No consolidation. No pleural effusions identified. IMPRESSION: Mild vascular prominence. No pneumonia. Electronically signed by Flavio Silver 07/25/2019 7:05 AM
[2019-07-25 07:16] LABS: AGAP 18; ALB/GLOB RATIO 2.5; ALBUMIN 4.3 g/dL (3.5-5.0); ALKALINE PHOSPHATASE 116 U/L (32-122); BUN 18 mg/dL (8-22); CALCIUM 9.1 mg/dL (8.8-10.2); CHLORIDE 100 mmol/L (98-107); CK PROFILE 91 U/L (24-204); COSMO 283; CREATININE 1.2 mg/dL (0.7-1.2); ESTIMATED GFR > 60; GLUCOSE 99 mg/dL (70-104); GOT 57 U/L (10-34); GPT 85 U/L (10-44); POTASSIUM 3.7 mmol/L (3.5-5.1); SODIUM 141 mmol/L (136-145); TCO2 23 mmol/L (25-35); TOTAL BILIRUBIN 0.66 mg/dL (0.20-1.00)
[2019-07-25 08:01] LABS: URINE SOURCE CLEAN CATCH
[2019-07-25 08:09] LABS: BILIRUBIN URINE NEGATIVE (NEGATIVE); BLOOD URINE NEGATIVE (NEGATIVE); COLOR YELLOW; GLUCOSE URINE NEGATIVE (NEGATIVE); KETONE URINE NEGATIVE (NEGATIVE); LEUKOCYTES URINE MODERATE (NEGATIVE); NITRITE URINE NEGATIVE (NEGATIVE); PH URINE 5.5; PROTEIN URINE NEGATIVE (NEGATIVE); SP GRAVITY URINE 1.016; TURBIDITY URINE CLEAR (CLEAR); UROBILINOGEN URINE 2 mg/dL (NORMAL)
[2019-07-25 08:10] LABS: UR EPITHELIAL CELLS <10 /HPF (<10); URINE BACTERIA NEGATIVE /HPF; URINE RBC <10 /HPF (<10)
[2019-07-25] MEDS ORDERED: ZOSYN 3.375 GM in NS 50 ML IV ONE (08:58)
[2019-07-25] MEDS ORDERED: VANCOMYCIN IV PER PHARMACY MISC SCH (09:00)
[2019-07-25] MEDS ORDERED: VANCOMYCIN 2,000 MG in NS 500 ML IV ONE (10:00)
[2019-07-25 10:33] LABS: FREE T4 1.39 ng/dL (0.93-1.70); TSH 1.18 uIUmL (0.27-4.20)
[2019-07-25] MEDS ORDERED: NEURONTIN PO SCH (10:33)
[2019-07-25] MEDS ORDERED: ROCEPHIN 1 GM in NS 50 ML IV SCH (10:33)
[2019-07-25] MEDS ORDERED: PRILOSEC PO SCH (10:33)
[2019-07-25] MEDS ORDERED: MIRALAX PO SCH (10:33)
[2019-07-25] MEDS ORDERED: CYMBALTA PO SCH (10:33)
[2019-07-25] MEDS ORDERED: TESSALON PO PRN (10:33)
[2019-07-25] MEDS ORDERED: ULTRAM PO PRN (10:33)
[2019-07-25] MEDS ORDERED: PHENERGAN PO PRN (10:33)
[2019-07-25] MEDS ORDERED: NAPROSYN PO PRN (10:33)
[2019-07-25] MEDS ORDERED: CLINDAMYCIN 600 MG/NS 600 MG/50 ML IVPB IV SCH (10:33)
[2019-07-25] MEDS ORDERED: TYLENOL PO PRN (10:33)
[2019-07-25] MEDS ORDERED: NORCO-10 PO PRN (10:33)
[2019-07-25] MEDS ORDERED: LAMICTAL PO SCH (10:33)
[2019-07-25] MEDS ORDERED: NORVASC PO SCH (10:33)
[2019-07-25] MEDS ORDERED: DIOVAN PO SCH (10:33)
[2019-07-25] MEDS ORDERED: ANTIVERT PO SCH (10:33)
--- NOTE | 2019-07-25 10:49 | HISTORY AND PHYSICAL ---
HISTORY: He described the evening before he had a dream. He dreamed he was throwing up and aspirating and he indeed woke up and he was throwing up and he felt like he did aspirate. He is complaining of feeling cold. He apparently had a temperature of 104 degrees, did not have any fever when he came in the emergency room. Workup was unremarkable. We are going to obtain a CT of his chest. It sounds like he had at least chemical aspiration pneumonitis. PAST MEDICAL HISTORY: He had a fall in which he suffered a back injury. 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 Other past medical history back surgery, left shoulder surgery, chronic lower back pain. ALLERGIES: No known drug allergies. SOCIAL HISTORY: No history of smoking. No alcohol or illicit drugs. I think he is a resident at [facility]. FAMILY HISTORY: No history of coronary artery disease. REVIEW OF SYSTEMS: He did not describe any weight gain or loss. He had fever this morning, but before for that has not noted any night sweats or fever.Cardiovascular: No chest pain or tachy palpitation. Respiratory: He feels like the area is cold and his throat is raw. He has coughing, dry nonproductive cough. Gastrointestinal and Genitourinary: No gross hematuria or dysuria. Musculoskeletal/Neurologic: No focal complaints Endocrinologic/hemologic: No significant history. PHYSICAL EXAM: Temperature 98 degrees, pulse 100, respirations 20, blood pressure 96/45. HEENT: Pupils are equal and round. LUNGS: Clear in all lung mcintosh. CARDIOVASCULAR: Regular rhythm and rate without murmur or S3. ABDOMEN: Soft, nondistended. No pedal edema. SKIN: Without any rashes. NECK: Supple. LABORATORY DATA: White count 8350, hematocrit is 44, platelet count 174,000. Sodium 141, potassium 3.7, chloride 100, BUN 18, creatinine 1.2. His lactate was 4.1. AST 57, ALT was 85, alkaline phosphatase 116. Urinalysis unremarkable. Chest x-ray, mild vascular prominence. No pneumonia appreciated. We are going to get a CT of his chest. ASSESSMENT AND PLAN: 1. Suspect aspiration pneumonia. We will put him empirically on clindamycin and ceftriaxone, give him some IV fluids. 2. He had an echocardiogram in March 2017. Left ventricular size looked normal. Ejection fraction 60%. No significant valvular dysfunction. 3. Chronic back pain. He is reported weakness in his legs, bladder incontinence. He had his 1st back surgery in 2011 in [place]. Does not know the details of that procedure. Reports having problems with bladder control since that time. Second back surgery October 2017 in [place]. He had the 2nd surgery because of chronic intense pain. After surgery he was not able to stand by his report because of excruciating back pain. His back pain is in the middle lower back traveling to both legs. He reports that pain management has offered little benefit. He is on gabapentin and hydrocodone I believe. He has had radicular features in the past. Subjective sense of weakness but no apparently Dr. Spain did not appreciate any objective evidence of motor deficit in the leg. This was back in February 2019. cc: Shahzad Pastor MD
[2019-07-25] MEDS: NS 1,000 ML IV SCH ×2 (11:19→23:58)
--- NOTE | 2019-07-25 11:19 | Diag Imaging Result Doc PS360 ---
EXAM: CT ANGIOGRM PULMONARY ARTERIES HISTORY: chest pain / cough TECHNIQUE: CT chest with intravenous contrast. Pulmonary arterial protocol with MIP images COMPARISON: None. FINDINGS: Suboptimal opacification of the pulmonary arteries. Poor inspiratory effort. The heart is mildly enlarged. No aortic aneurysm or dissection. No central pulmonary emboli. There are scattered nodular infiltrates throughout the right lung. No pneumothorax. Limited images through the upper abdomen reveal a cholecystectomy. The spleen is prominent measuring 14.9 cm in AP diameter. There is likely fatty infiltration of the liver. IMPRESSION: 1.No large central pulmonary emboli 2.Right lung nodular infiltrates 3.Cardiomegaly and splenomegaly This exam was performed using automated exposure control, adjustment of mA or kV according to patient size, and/or use of iterative reconstruction technique. Electronically signed by Flavio Silver 07/25/2019 11:17 AM
[2019-07-25] MEDS: CLINDAMYCIN 600 MG/D5W 600 MG/50 ML IVPB IV SCH ×2 (11:39→19:45)
[2019-07-25] MEDS: LIORESAL PO SCH ×2 (13:39→17:44)
[2019-07-25] MEDS: LOVENOX SUBQ SCH (13:40)
[2019-07-25] MEDS: SYSTANE EYE DROPS OPH SCH ×2 (14:34→17:45)
[2019-07-25] MEDS ORDERED: SODIUM CHLORIDE 0.9% INJ ONE (17:34)
[2019-07-25] MEDS ORDERED: PHENERGAN IV ONE (17:34)
[2019-07-25] MEDS ORDERED: SODIUM CHLORIDE 0.9% INJ PRN (17:34)
[2019-07-25] MEDS: ZOFRAN IV PRN (17:40)
[2019-07-25] MEDS ORDERED: CHLORASEPTIC SPRAY MT PRN (17:48)
--- NOTE | 2019-07-25 18:11 | Diag Imaging Result Doc PS360 ---
EXAM: CHEST-PORTABLE HISTORY: For Post NG Insertion TECHNIQUE: Single view COMPARISON: 6:49 AM FINDINGS: A nasogastric tube has been placed since the prior exam. This overlies the esophagus and upper stomach. Approximately 10 to 12 cm overlies the stomach. Electronically signed by Flavio Silver 07/25/2019 6:08 PM
[2019-07-25] MEDS ORDERED: PROTONIX IV SCH (18:13)
[2019-07-25] MEDS ORDERED: SODIUM CHLORIDE 0.9% INJ SCH (18:13)
[2019-07-25 19:05] LABS: URINE SOURCE CATH
[2019-07-25 19:07] LABS: BILIRUBIN URINE NEGATIVE (NEGATIVE); BLOOD URINE NEGATIVE (NEGATIVE); COLOR YELLOW; GLUCOSE URINE NEGATIVE (NEGATIVE); KETONE URINE NEGATIVE (NEGATIVE); LEUKOCYTES URINE SMALL (NEGATIVE); NITRITE URINE NEGATIVE (NEGATIVE); PROTEIN URINE TRACE mg/dL (NEGATIVE); SP GRAVITY URINE 1.046; TURBIDITY URINE CLEAR (CLEAR); UR EPITHELIAL CELLS <10 /HPF (<10); URINE BACTERIA NEGATIVE /HPF; URINE RBC <10 /HPF (<10); URINE WBC <10 /HPF (<10); UROBILINOGEN URINE 3 mg/dL (NORMAL)
--- NOTE | 2019-07-25 19:09 | Diag Imaging Result Doc PS360 ---
EXAM: ABDOMEN FLAT/UPRIGHT HISTORY: pain TECHNIQUE: Two views COMPARISON: 02/23/2019 FINDINGS: Nasogastric tube overlies the stomach. Prominent stool throughout the colon. No bowel obstruction. No organomegaly. IMPRESSION: Constipation Electronically signed by Flavio Silver 07/25/2019 7:07 PM
[2019-07-25] MEDS: PROTONIX IV SCH (19:45)
[2019-07-25] MEDS: MAXIPIME 2 GM/NS 2 GM/100 ML IVPB IV SCH (19:46)
[2019-07-25] MEDS: OFIRMEV 1000 MG/ISOTONIC SOLN 1,000 MG/100 ML BOTTLE IV PRN (20:12)
[2019-07-25] MEDS ORDERED: SYNTHROID PO SCH (21:00)
[2019-07-25] MEDS ORDERED: DULCOLAX PR SCH (21:00)
[2019-07-25] MEDS ORDERED: MELATONIN PO SCH (21:00)
[2019-07-25] MEDS: MUCOMYST 20% INH SCH (21:46)
[2019-07-25] MEDS: XOPENEX NEB INH SCH (21:47)
--- NOTE | 2019-07-25 21:57 | PROGRESS NOTE ---
DATE: 07/25/2019 CAT call was done. Patient became unresponsive, cyanotic after an intense coughing spell. There was concern over a new aspiration. He cannot tolerate anything p.o. is coming back up. There is question of esophageal stricture which was due, his breath sounds were rhonchorous. He had continuous coughing and gagging and he had several episodes of liquid emesis while the CAT call was going on so we went ahead and moved him the ICU, placed an NG tube. He is already on aspiration coverage, expanded his gram-negative coverage and we will continue to monitor. I do think he probably has another aspiration event but we do not know what is all going to be done at this point so we are trying to follow things closely. Will get a GI consult to evaluate for possibly dilating that stricture and we will make him strict NPO. He may also need abdominal film just to see if he has got an ileus or something from that standpoint. cc: Tera Borden MD MTDD
[2019-07-25] MEDS: SYMBICORT 160/4.5 MICROGM INHALER INH SCH (23:46)
[2019-07-26] MEDS: NS 1,000 ML IV SCH (00:35)
[2019-07-26] MEDS: CLINDAMYCIN 600 MG/D5W 600 MG/50 ML IVPB IV SCH ×3 (03:59→18:14)
[2019-07-26 04:33] LABS: ALLEN TEST YES; BE 1.6 mmoll (-3.0-3.0); BLOOD TYPE ARTERIAL; HCO3-(ACT) 26.1 mmoll (20.0-26.0); O2HB 95.5 % (95.0-99.0); PO2(98.6) 87 mmHg (60-100); SAMPLE BLOOD; SAO2 98.5 % (95.0-100.0); THB 14.1 g/dL (11.5-17.4); pH(98.6) 7.35 (7.35-7.45)
[2019-07-26 04:34] LABS: MODALITY CANNULA; PCO2(98.6) 51 mmHg (35-45)
[2019-07-26 06:25] LABS: BASO# 0.02 X1000 (0.0-0.2); BASO% 0.2 % (0.0-0.8); EOS# 0.19 X1000 (0.0-0.7); HEMATOCRIT 40.3 % (42.0-52.0); HEMOGLOBIN 13.5 g/dL (14.0-18.0); LYMPH# 1.64 X1000 (1.2-3.4); MCH 29.4 PG (27-31); MCHC 33.5 g/dL (33-37); MCV 87.8 FL (81-99); MONO# 0.72 X1000 (0.11-0.59); MONO% 7.5 % (1.7-9.3); MPV 11.3 FL (7.4-10.4); NEUT# 7.09 X1000 (1.4-6.5); NEUT% 73.3 % (42.2-75.2); PLT 158 X1000 (130-400); RBC 4.59 XMIL (4.7-6.1); RDW 12.6 % (11.5-14.5); WBC 9.66 X1000 (4.8-10.8)
[2019-07-26] MEDS: PROTONIX IV SCH ×2 (06:27→18:14)
[2019-07-26 07:00] LABS: AGAP 12; BUN 17 mg/dL (8-22); CALCIUM 8.8 mg/dL (8.8-10.2); CHLORIDE 104 mmol/L (98-107); COSMO 282; CREATININE 1.1 mg/dL (0.7-1.2); ESTIMATED GFR > 60; GLUCOSE 78 mg/dL (70-104); POTASSIUM 4.3 mmol/L (3.5-5.1); SODIUM 141 mmol/L (136-145); TCO2 25 mmol/L (25-35)
[2019-07-26] MEDS: MAXIPIME 2 GM/NS 2 GM/100 ML IVPB IV SCH ×2 (07:37→19:26)
[2019-07-26] MEDS: MORPHINE IV PRN ×3 (07:44→18:13)
--- NOTE | 2019-07-26 07:56 | Diag Imaging Result Doc PS360 ---
EXAM: CHEST-PORTABLE INDICATION: dyspnea TECHNIQUE: One view COMPARISON: 07/25/2019 FINDINGS: The NG tube is in stable position. Diffuse airspace infiltrate throughout the right lung likely representing pneumonia has developed during the interval. The left lung remains clear by plain radiograph. No other new consolidation is identified. Cardiac silhouette is stable. IMPRESSION: Development of diffuse airspace infiltrate throughout the right lung. Electronically signed by Parth Watt 07/26/2019 7:54 AM
--- NOTE | 2019-07-26 08:21 | PROGRESS NOTE ---
DATE: 07/26/2019 SUBJECTIVE: He had more aspiration on the floor. He has an NG tube in. He is in restraints, and he has remained afebrile. OBJECTIVE: Vital Signs: Temperature 97.9 degrees, pulse 85, respirations 16, blood pressure 110/53. HEENT: Pupils are equal and round. Lungs: Clear anterolateral. Cardiovascular: Regular rhythm and rate without murmur or S3. Abdomen: Soft. Skin: Warm and dry. IMAGING: His chest x-ray from this morning showed development of diffuse airspace infiltrate throughout the right lung. ASSESSMENT AND PLAN: Appreciate Dr. Chet Borden's help. Cat call was called. He became unresponsive, cyanotic after intense coughing spell. There was concern over new aspiration. The question is whether he had esophageal stricture. His x-ray shows a change on the right side, so nasogastric tube in place, expanded his antibiotic coverage. Temperature 97.9 degrees, pulse 85, respirations 16, blood pressure 110/50. He is getting budesonide formoterol inhalation treatments 2 puffs twice a day, clindamycin 600 mg intravenously every 8 hours, cefepime 2 grams intravenously every 12 hours, Protonix 40 mg intravenously every [address] Thompson has been consulted. He has chronic back pain and weakness in his legs, and he is having some confusion, so will try to keep him off of anything that might contribute to that. cc: Shahzad Pastor MD
[2019-07-26] MEDS: XOPENEX NEB INH SCH ×3 (09:53→19:30)
[2019-07-26] MEDS: MUCOMYST 20% INH SCH ×2 (09:54→19:30)
[2019-07-26] MEDS: SYMBICORT 160/4.5 MICROGM INHALER INH SCH ×2 (09:54→19:56)
[2019-07-26] MEDS: LOVENOX SUBQ SCH (10:33)
[2019-07-26] MEDS: OFIRMEV 1000 MG/ISOTONIC SOLN 1,000 MG/100 ML BOTTLE IV PRN (11:54)
[2019-07-26] MEDS: SODIUM CHLORIDE 0.9% INJ SCH (18:14)
[2019-07-26] MEDS: ATIVAN IV PRN (18:27)
--- NOTE | 2019-07-26 20:22 | GASTROENTEROLOGY CONSULTATION ---
DATE: 07/26/2019 ATTENDING PHYSICIAN: Shahzad Pastor MD PRIMARY CARE DOCTORS: Eric Bishop MD. REASON FOR CONSULTATION: Aspiration pneumonia and dysphagia. HISTORY OF PRESENT ILLNESS: Mr. Pelayo is a 29-year-old male who is a resident of [facility]. He had a history of fall at work where he fell from 10 to 12 feet at work and had damage to the lumbar spine in October 2017. He went for lumbar spine surgery, but after the surgery he could not walk and since then, he has been in the correction. He was admitted to the hospital for nausea, vomiting and aspiration pneumonia. He also had a temperature of 104 degrees. He had another episode of aspiration in the hospital and a CAT call was called and he was put on high amount of oxygen. He has since then improved. He is in ICU 7. During this admission he had an abdominal x-ray, which showed evidence of constipation prominent stool throughout the colon and chest x-ray which showed diffuse airspace infiltrates throughout the right lung likely representing pneumonia has developed, which is thought to be aspiration pneumonia. On admission, he also had a pulmonary arteriogram which showed cardiomegaly, splenomegaly and right lung nodular infiltrates. No large central pulmonary emboli was noted. Gastroenterology was consulted for workup of nausea, vomiting and possible dysphagia. According to the patient, every time he eats he feels like the food goes down in the stomach, but does not digest. He sometimes feels the food has a hard time going down in the mid chest area. He describes having a bowel movement yesterday, but the abdominal x-ray showing evidence of prominent stool throughout the colon. PAST MEDICAL HISTORY: 1. Back injury after a fall. Since then, he is having difficulty with standing and walking. 2. Reflux disease, questionable conversion disorder. 3. Depression. PAST SURGICAL HISTORY: He has a history of back surgery and left shoulder surgery. ALLERGIES: No known drug allergies. SOCIAL HISTORY: He is currently living at [facility]. No history of alcohol, tobacco, or illicit drug abuse. FAMILY HISTORY: Noncontributory. MEDICATIONS: In the hospital, include Mucomyst and Dulcolax 10 mg per rectal b.i.d., Symbicort inhaler b.i.d., clindamycin, Lovenox subcutaneously every day, Xopenex nebulizer, Ativan, cefepime, morphine, normal saline 70 mg/hour, Tylenol, Zofran, Protonix, Chloraseptic spray, Phenergan, Robitussin AC, Toradol and he was also given dose of Zosyn and vancomycin in the ER. He is currently NPO. REVIEW OF SYSTEMS: Denies any current fevers at the moment, although, since admission he has had a fever spike according to the records. Denies any chest pain, no shortness of breath, dyspnea at rest. Denies any vomiting blood. He does complain of intermittent nausea and vomiting for many months. He has some coughing spells which is likely secondary aspiration pneumonia. He had a bowel movement yesterday, but abdominal x-ray showing evidence of stool throughout the colon. He does have difficulty walking and standing because of back injury. He denies any neurological complaints. PHYSICAL EXAMINATION: Vital signs: Temperature 98.3 degrees, pulse of 83, respiratory rate 16, blood pressure 113/53, saturating 90% on nasal cannula 3 L. Body weight of 200 pounds, BMI 27.9 kg. General appearance: He is moderate built, moderately nourished, lying in bed in no acute distress. HEENT: No pallor. No icterus. No nasal complaints. Pupils equal, react to light. Neck: Supple. Abdomen: Protuberant soft, nontender, nondistended. No guarding or rebound. Extremities: No cyanosis, clubbing. Neurologic: He is alert, awake, oriented x3. LABS: Hemoglobin and hematocrit is 13.5 and 40.3. White count 9.6, platelet count of 158,000. INR 0.96, PT of 12.9, PTT of 25.7. Sodium of 141, potassium 4.3, chloride 104, bicarb 25, anion gap 12, BUN of 17, creatinine 1.1, glucose of 78. Calcium is 8.8. AST 57, ALT 85, alkaline phosphatase 160, total protein is 6, albumin of 4.3. Urinalysis showing trace protein and small leukocytes ABG showing pH of 7.35, pCO2 51, PO2 of 87. Lactate of 0.9. Bicarb of 26.1. Blood culture preliminary: One of 2 sets are currently pending. Flu screen was negative. Urine culture showing no growth x2. IMPRESSION AND PLAN: 1. Nausea and vomiting. 2. Constipation. 3. Possible dysphagia. 4. Aspiration pneumonia. 5. Chronic back injury leading to paraplegia. 6. Last esophagogastroduodenoscopy was in February,, which showed reflux esophagitis, LA grade A, acute gastritis, normal duodenal and the gastric biopsies showed inactive gastritis and Helicobacter pylori negative. RECOMMENDATIONS: 1. We will keep the patient on aspiration precautions. He will continue on IV antibiotics and IV fluids and pulmonary nebulizers. We will continue him on proton pump inhibitor b.i.d. We will start him on MiraLAX twice daily and Dulcolax twice daily for constipation. 2. We will schedule him for esophagogastroduodenoscopy tomorrow under anesthesia. The risks, benefits, indications, and alternatives to the procedure were discussed with the patient and all questions answered. Further recommendations pending hospital course. cc: MD Shahzad Moses MD Kirk L. Jackson, MD
[2019-07-26] MEDS: DULCOLAX PR SCH (21:49)
[2019-07-27] MEDS: MORPHINE IV PRN ×2 (01:05→20:31)
[2019-07-27] MEDS: CLINDAMYCIN 600 MG/D5W 600 MG/50 ML IVPB IV SCH ×3 (02:23→18:28)
[2019-07-27] MEDS: NS 1,000 ML IV SCH ×3 (02:23→20:31)
[2019-07-27] MEDS: ATIVAN IV PRN ×2 (02:31→18:28)
[2019-07-27 04:23] LABS: BLOOD TYPE ARTERIAL; SAMPLE BLOOD
[2019-07-27 04:24] LABS: ALLEN TEST YES; BE 4.2 mmoll (-3.0-3.0); HCO3-(ACT) 28.2 mmoll (20.0-26.0); METHB 1.4 % (0.0-1.5); MODALITY CANNULA; O2(CT) 18.8 mL/dL (15.0-23.0); O2HB 96.1 % (95.0-99.0); PCO2(98.6) 44 mmHg (35-45); PO2(98.6) 127 mmHg (60-100); SAO2 99.3 % (95.0-100.0); THB 13.8 g/dL (11.5-17.4); pH(98.6) 7.43 (7.35-7.45)
[2019-07-27] MEDS: PROTONIX IV SCH ×2 (06:25→18:28)
--- NOTE | 2019-07-27 07:51 | Diag Imaging Result Doc PS360 ---
CHEST-PORTABLE - 07/27/2019 INDICATION: dyspnea COMPARISON: 07/26/2019 FINDINGS: Stable nasogastric tube in good position. Lung volumes are improved. There has been improvement in the diffuse infiltrate throughout the right lung. There is also slight improvement in the patchy infiltrate or atelectasis at the left lung base. Stable cardiomegaly. IMPRESSION: Improvement from prior. Electronically signed by Glenn Griffin 07/27/2019 7:49 AM
[2019-07-27] MEDS ORDERED: DIPRIVAN 1% ONE (09:34)
[2019-07-27] MEDS ORDERED: FENTANYL ONE (09:35)
[2019-07-27] MEDS ORDERED: XYLOCAINE-MPF 2% ONE (09:47)
--- NOTE | 2019-07-27 10:05 | ENDOSCOPY OPERATIVE NOTE ---
[facility] ENDOSCOPY OPERATIVE NOTE , EGD WITH DILATION PROCEDURE REPORT EXAM DATE: 07/27/2019 PATIENT NAME: Rajesh Pelayo MR#: [id number] BIRTHDATE: 1990 ATTENDING: Osorio Thompson MD STATUS: inpatient DISTRICT MANAGER IN TRAINING: INDICATIONS: The patient is a 29 yr old male here for an EGD with dilation due to Nausea vomiting as piration pneumonia, Dysphagia, constipation, back injury and surgery resulting in paraplegia. PROCEDURE PERFORMED: EGD w/ dilation (stahl) MEDICATIONS: Per Anesthesia TOPICAL ANESTHETIC: none CONSENT: The patient understands the risks and benefits of the procedure and understands that these r isks include, but are not limited to: sedation, allergic reaction, infection, perforation and/or bleeding. Alternative means of evaluation and treatment include, among others: physical exam, x-rays, and/or surgical intervention. The patient elects to proceed with this endoscopic procedure. HISTORY AND PHYSICAL: 07/27/2019 DESCRIPTION OF PROCEDURE: During pre-op preparation period all mechanical and medical equipment was c hecked for proper function. Hand hygiene and appropriate measures for infection prevention was taken. After the risks, benefits and alternatives of the procedure were thoroughly explained, Informed consent was verified, confirmed and timeout was successfully executed by the treatment team. The patient was anesthetized with topical anesthesia and the [id number] ([id number]) endoscope was introduced through the mouth and advanced to the second portion of the duoden um. The instrument was slowly withdrawn as the mucosa was fully examined. ESOPHAGUS: A Schatzki ring was found in the lower third of the esophagus. The stricture was dilated using a 16mm (48Fr) Stahl dilator. Mild reflux esophagitis was found at the gastroesophageal junction. Esophagitis wa s LA Class A: One or more mucosal breaks < 5 mm in maximal length. STOMACH: Mild gastritis (inflammation) was found in the gastric antrum and gastric body. Bile was n oted in the stomach. DUODENUM: The duodenal mucosa showed no abnormalities in the duodenal bulb, 1st part duodenum, and 2n d part duodenum. Dilation was performed at . DILATOR: SIZE(S): RESISTANCE: HEME: APPEARANCE: Dilator: Stahl Size(s): 48 Fr Resistance: minimal Heme: none Appearance: adequate COMMENT: Retroflexion was performed in the stomach and revealed no abnormalities. ADVERSE EVENTS: There were no complications. IMPRESSIONS: 1. Schatzki ring was found in the lower third of the esophagus; The stricture was d ilated using a 16mm (48Fr) Stahl dilator.; Following this dilation, there was no change in the appearance of the strict ure 2. Reflux esophagitis at the gastroesophageal junction 3. Gastritis (inflammation) was found in the gastric antrum and gastric body 4. Bile was noted in the stomach 5. The duodenal mucosa showed no abnormalities in the duodenal bulb, 1st part duodenum, and 2nd part duodenum RECOMMENDATIONS: Aspiration precaution Start Miralax 17g BID as xray show retained stool in the colon Continue PPI QD for 90 days Start Liquid diet for now and advance as tolerated. REPEAT EXAM: Osorio Thompson MD eSigned: Osorio Thompson MD 07/27/2019 10:05 AM cc: CPT CODES: 32101 Upper gastrointestinal endoscopy including esophagus, stomach, and either the du odenum and/or jejunum as appropriate; with stahl dilation of esophagus (less than 30 mm diameter) ICD CODES: The ICD and CPT codes recommended by this software are interpretations from the data that the [facility] staff has captured with the software. The verification of the translation of this report to the ICD and CPT co trice and modifiers is the sole responsibility of the health care institution and practicing physician where this report was generated. [employer] will not be held responsible for the validity of the ICD and CPT codes i ncluded on this report. [facility] assumes no liability for data contained or not contained herein. CPT is a registered tra [employer]ark of the [employer]. PATIENT NAME: Rajesh Pelayo MR#: [id number]
[2019-07-27] MEDS: DULCOLAX PR SCH ×2 (10:30→20:32)
[2019-07-27] MEDS: MAXIPIME 2 GM/NS 2 GM/100 ML IVPB IV SCH ×2 (10:31→20:32)
[2019-07-27] MEDS: MUCOMYST 20% INH SCH ×2 (11:23→22:18)
[2019-07-27] MEDS: XOPENEX NEB INH SCH ×3 (11:24→22:19)
[2019-07-27] MEDS: SYMBICORT 160/4.5 MICROGM INHALER INH SCH ×2 (11:24→22:19)
[2019-07-27] MEDS: OFIRMEV 1000 MG/ISOTONIC SOLN 1,000 MG/100 ML BOTTLE IV PRN (16:25)
--- NOTE | 2019-07-27 17:26 | PROGRESS NOTE ---
DATE: 07/27/2019 HISTORY: Mr. Pierce najera is EGD today and found Schatzki's ring in the lower third of the esophagus. Stricture was dilated using a 16 mm Stahl dilator. He has a history of reflux esophagitis at the gastroesophageal junction, gastritis, inflammation found in the gastric antrum and gastric body and duodenal mucosa. No abnormalities in the duodenal bulb, 1st part of duodenum and 2nd part duodenum looked good. PHYSICAL EXAMINATION: Vital signs: Today, remains afebrile, temperature 99.1 degrees, pulse 96, respirations 19, blood pressure 123/61. Pupils are equal and round. Lungs: Clear in all lung mcintosh. Cardiovascular: Regular rhythm and rate without murmur or S3. Abdomen: Soft. Skin: Warm and dry. Urine output was 4800 mL. ASSESSMENT AND PLAN: 1. Nausea, vomiting, and aspiration, found Schatzki's ring with significant dysphagia and this was dilated, so hopefully this is improved. 2. Aspiration pneumonia. Continue present antibiotics. Clinically appears to be doing a little better. 3. Chronic back injury leading to paraplegia. 4. His nutrition has been good. Obesity. REVIEW OF ORDERS: He is on clindamycin 600 mg IV q.8 and cefepime 2 g IV every 12 hours. He is on Protonix 40 mg IV q.12, MiraLAX 17 g p.o. b.i.d. We have him on low-dose Lovenox for DVT prophylaxis. He is getting budesonide formoterol inhalations 2 puffs b.i.d., acetylcysteine treatments inhalation treatments b.i.d. LABORATORY DATA: From today looks good. White count 9660, hematocrit 40, platelet count 158,000. Sodium 141, potassium 4.3, chloride 104, BUN 17, creatinine 1.1. Continue his Protonix 40 mg q.12 and advance his diet. Note that his thyroid and his B12 and folate looked good. Renal function doing good. cc: Shahzad Pastor MD
[2019-07-27] MEDS: SODIUM CHLORIDE 0.9% INJ SCH (18:28)
[2019-07-27] MEDS: MIRALAX PO SCH (20:32)
[2019-07-27] MEDS: PHENERGAN IV PRN (22:31)
[2019-07-28] MEDS: CLINDAMYCIN 600 MG/D5W 600 MG/50 ML IVPB IV SCH ×3 (02:52→18:07)
[2019-07-28] MEDS: ATIVAN IV PRN ×2 (02:53→22:21)
[2019-07-28] MEDS: MORPHINE IV PRN ×3 (02:53→22:21)
[2019-07-28] MEDS: PROTONIX IV SCH ×2 (06:18→18:07)
[2019-07-28] MEDS: MAXIPIME 2 GM/NS 2 GM/100 ML IVPB IV SCH ×2 (08:07→19:48)
[2019-07-28] MEDS: DULCOLAX PR SCH ×2 (08:34→21:04)
[2019-07-28] MEDS: MIRALAX PO SCH ×2 (08:35→21:04)
[2019-07-28] MEDS: NS 1,000 ML IV SCH ×2 (10:32→22:21)
[2019-07-28] MEDS: LOVENOX SUBQ SCH (10:33)
[2019-07-28] MEDS: MUCOMYST 20% INH SCH ×2 (11:00→23:15)
[2019-07-28] MEDS: XOPENEX NEB INH SCH ×3 (11:00→23:15)
[2019-07-28] MEDS: SYMBICORT 160/4.5 MICROGM INHALER INH SCH ×2 (11:25→23:15)
[2019-07-28] MEDS: ZOFRAN IV PRN ×3 (11:35→22:21)
[2019-07-28] MEDS: OFIRMEV 1000 MG/ISOTONIC SOLN 1,000 MG/100 ML BOTTLE IV PRN (11:54)
--- NOTE | 2019-07-28 12:01 | PROGRESS NOTE ---
DATE: 07/28/2019 I have seen and examined Mr. Pelayo today. He is still in the ICU. Mother was at the bedside at the time of the encounter. Mr. Pelayo refers that he has had multiple vomiting this morning and the mother confirms this as well. The mother is very scared that if he should go to the floor he might aspirate again and end up coming back to the ICU. I understand Mr. Pelayo has a long history of some trauma to his back before that has made him almost impossible to walk. He has been seen in most hospitals including [facility] and [facility]. Unfortunately, he lost insurance during all these and he has not been able to follow up. He was at some point told he had pseudoseizures, according to the mother. Mr. Pelayo was at the [facility], [facility], and according to him, he has been coughing for some time and then the day of admission, he thought he was dreaming the night before coughing, waking up almost suffocating, was brought to the emergency room and he was found to have aspiration pneumonia, was admitted to the medical floor and he had an episode where I understand he choked, vomited, coughed multiple times, and then almost choked. He was brought to the ICU. He has been evaluated by GI and EGD was done yesterday where a Schatzki ring was found at the lower 3rd of the esophagus and this was dilated. There was also reflux esophagitis at the gastrojejunal junction. There was bile noted in the stomach. Duodenal mucosa showed no abnormalities. OBJECTIVELY: Vitals: Blood pressure is 142/53, pulse of 90, respirations 16, temperature 98.4 degrees. General: Mr. Pelayo is a 29-year-old gentleman. He is in bed, no distress. Mucosa is pink and moist. Anicteric. Acyanotic. Neck: Supple. Chest: Good air entry bilaterally. Few crackles posteriorly. Cardiovascular: Regular rate and rhythm. No murmurs, no rubs, no gallops. Abdomen: Soft, distended but nontender. Bowel sounds present. Extremities: No pedal edema. RAILROAD MECHANIC: Patient is awake, alert, oriented. He has exaggerated reflexes in both lower extremities. Babinski is downgoing in both extremities. Power seems to be about 4- in both lower extremities. LABORATORY DATA: No CBC, no lab work for today. Microbiology data blood cultures have been 48 hours negative. ASSESSMENT: 1. Multifocal bilateral pneumonia secondary to aspiration pneumonitis. Patient continues to be on antimicrobial therapy. 2. Hypercarbic respiratory failure on admission, improved. 3. Nausea and vomiting. 4. Schatzki ring. The patient is status post EGD with dilation. 5. Reflux esophagitis and gastritis. The patient is currently on PPI. 6. Constipation, improved with bowel regimen. 7. Chronic back pain secondary to some injury leading to mild paraplegia with hyperreflexes significant for upper motor neuron disease. I do not see any neuro imaging of Mr. Pelayo's back, so we are going to do an MRI of the entire spine including the brain. 8. History of pseudoseizures. I quite remember Mr. Pelayo's last admission on the day prior to be discharged. He had an episode whereby he was unresponsive for a very short period of time. Eyes were blinking and he was evaluated by psych. They thought he was depressed and to follow up. He also has a history of having been diagnosed with pseudoseizures in the past so we will get an MRI of the brain as well just to make sure that he does not have any RAILROAD MECHANIC process that is causing some of his GI disease process. cc: Guanako Tai MD
--- NOTE | 2019-07-28 18:19 | GASTROENTEROLOGY PROGRESS NOTE ---
DATE: 07/28/2019 SUBJECTIVE: The patient is resting in bed. He complained of nausea and vomiting after eating. According to the nursing reports he has thrown up multiple times today. He has started to move his bowels. Bowels were soft brown. There was no evidence of any blood in the vomiting. OBJECTIVE: Vital Signs: Temperature of 100, pulse rate 65, respiratory rate 22, blood pressure 112/47, saturating 94% on 2 L nasal cannula. Body weight of 200 pounds, BMI 27.9 kg. General: He is moderately nourished, lying in bed, in no acute distress. HEENT: No pallor. No icterus. Neck: Supple. Abdomen: Soft, nontender, nondistended. No guarding or rebound. Extremities: No cyanosis or clubbing. Neurologic: He is alert, awake, oriented. LABS: His ABG showing pH of 7.43 pC02 44, pO2 127, this is on 20% FiO2. Urine culture showing no growth. Flu screen was negative for A and B. Blood culture negative at 48 hours. IMPRESSION AND PLAN: 1. Multiple bilateral pneumonia secondary to aspiration pneumonitis. He is on antibiotics per the primary team. 2. Hypercapnic respiratory failure on admission, which is improved. 3. Nausea and vomiting is persistent. We will continue with around the clock antiemetics. He is listed for Zofran 4 mg IV every four hours as needed and also listed for Phenergan as needed. We can also add Reglan if needed. 4. Constipation. He is starting to move his bowels. He is on MiraLAX twice daily and Dulcolax per rectal twice daily. 5. Deep venous thrombosis prophylaxis with Lovenox. 6. Chronic back pain secondary to injury in the past leading to mild paraplegia, being monitored by primary team. 7. History of pseudoseizures, being managed by primary care team. 8. The patient is on intravenous morphine. We need to reduce the dose of narcotics as low as possible as they can contribute to nausea as well. 9. Above plan discussed with the patient and the nursing staff at bedside. All questions answered. Please call us with any further questions. cc: MD Guanako Moses MD Kirk L. Jackson, MD
[2019-07-28] MEDS: PHENERGAN IV PRN (19:49)
[2019-07-29] MEDS: CLINDAMYCIN 600 MG/D5W 600 MG/50 ML IVPB IV SCH ×3 (03:13→18:11)
[2019-07-29 06:00] LABS: BASO# 0.03 X1000 (0.0-0.2); BASO% 0.6 % (0.0-0.8); EOS# 0.18 X1000 (0.0-0.7); EOS% 3.4 % (0.0-10.0); HEMATOCRIT 38.4 % (42.0-52.0); HEMOGLOBIN 13.2 g/dL (14.0-18.0); IMM GRAN# 0.06 X1000 (0.0-0.04); IMM GRAN% 1.1 % (0.0-0.5); LYMPH# 1.81 X1000 (1.2-3.4); LYMPH% 34.6 % (20.5-51.1); MCH 29.9 PG (27-31); MCHC 34.4 g/dL (33-37); MCV 86.9 FL (81-99); MONO# 0.81 X1000 (0.11-0.59); MONO% 15.5 % (1.7-9.3); MPV 10.5 FL (7.4-10.4); NEUT# 2.34 X1000 (1.4-6.5); NEUT% 44.8 % (42.2-75.2); PLT 215 X1000 (130-400); RBC 4.42 XMIL (4.7-6.1); RDW 12.1 % (11.5-14.5); WBC 5.23 X1000 (4.8-10.8)
[2019-07-29] MEDS: SODIUM CHLORIDE 0.9% INJ SCH ×2 (06:22→22:01)
[2019-07-29] MEDS: PROTONIX IV SCH ×2 (06:22→18:12)
[2019-07-29] MEDS ORDERED: ATROPINE SYRINGE IV PRN (06:27)
[2019-07-29 06:46] LABS: AGAP 10; ALBUMIN 3.2 g/dL (3.5-5.0); BUN 7 mg/dL (8-22); CALCIUM 8.9 mg/dL (8.8-10.2); CHLORIDE 102 mmol/L (98-107); COSMO 279; CREATININE 0.9 mg/dL (0.7-1.2); ESTIMATED GFR > 60; GLUCOSE 86 mg/dL (70-104); PHOSPHORUS 4.5 mg/dL (2.7-4.5); POTASSIUM 3.4 mmol/L (3.5-5.1); SODIUM 141 mmol/L (136-145); TCO2 29 mmol/L (25-35)
[2019-07-29] MEDS: MAXIPIME 2 GM/NS 2 GM/100 ML IVPB IV SCH ×2 (07:47→21:28)
[2019-07-29] MEDS: MIRALAX PO SCH ×2 (08:10→21:31)
[2019-07-29] MEDS: DULCOLAX PR SCH ×2 (08:10→21:31)
[2019-07-29] MEDS: XOPENEX NEB INH SCH ×3 (09:34→22:40)
[2019-07-29] MEDS: MUCOMYST 20% INH SCH ×2 (09:34→22:40)
[2019-07-29] MEDS: SYMBICORT 160/4.5 MICROGM INHALER INH SCH ×2 (09:35→22:40)
[2019-07-29] MEDS: LOVENOX SUBQ SCH (10:41)
[2019-07-29] MEDS: ATIVAN IV PRN (10:41)
[2019-07-29] MEDS: NS 1,000 ML IV SCH (11:45)
[2019-07-29] MEDS: ZOFRAN IV PRN (12:54)
[2019-07-29] MEDS: MORPHINE IV PRN (12:54)
--- NOTE | 2019-07-29 14:16 | PROGRESS NOTE ---
DATE: 07/29/2019 SUBJECTIVE: This morning Mr. Pelayo refers to be doing fairly okay. Still continues to have coughing. The nursing staff thought that he has been pushing his fingers down his throat to vomit. OBJECTIVE: Current vitals: Blood pressure is 142/72, pulse of 83, respiration is 12, temperature is 97.4 degrees. Patient is saturating 95%. General: On general exam, Mr. Pelayo is a 29-year- old gentleman. He is in bed, no distress. HEENT: Mucosa is pink and moist. Anicteric. Acyanotic. Neck: Neck is supple. Chest: Good air entry bilateral. Did not hear any crackles. No rhonchi. Cardiovascular: Regular rate and rhythm. No murmurs, no rubs, no gallops. GI: Abdomen was soft, nontender. Bowel sounds present, Extremities: No pedal edema. The patient still has a Mahajan catheter in place. CMM TECHNICIAN: Patient is awake, alert, oriented, seems to have slightly exaggerated reflexes in both lower extremities. Power is about 4- in both lower extremities. LABORATORY DATA: WBC is 5.23, hemoglobin is 13.2, platelet count of 215. Chemistry is also reviewed and is unremarkable. So far, blood cultures have been 48 hours negative. Urine cultures have also been no growth. CURRENT MEDICATIONS: Have all been reviewed. ASSESSMENT: 1. Multifocal bilateral pneumonia secondary to aspiration pneumonitis. Patient is on antimicrobial therapy (clindamycin and cefepime; today is day 4). 2. Hypercarbic respiratory failure on admission, resolved. 3. Reflux esophagitis and gastritis with Schatzki ring. Patient is status post esophagogastroduodenoscopy with dilation. He continues to be on proton pump inhibitor. 4. Constipation improved with bowel regimen. 5. Chronic pain syndrome. 6. Mild paraplegia with hyper reflexes. The patient is pending MRIs tomorrow. 7. History of pseudoseizures noted. PLAN: So, in general, it appears Mr. Pelayo is doing well. I have discontinued his morphine and Ativan, and we are going to also discontinue the Mahajan catheter. He was not quite pleased with the Mahajan being removed. However, I did explain to him that the risk of infection will be higher than any potential benefit, and since he does not really use that at home nor at the rehab, we think it is reasonable to remove the Mahajan catheter and have him urinate physiologically. We are going to transfer Mr. Pelayo from the ICU to the medical floor. Continue with aspiration precautions. Get the MRIs tomorrow morning and go from there. cc: Guanako Tai MD
[2019-07-29] MEDS ORDERED: NORCO-5 PO PRN (15:26)
--- NOTE | 2019-07-29 17:07 | GASTROENTEROLOGY PROGRESS NOTE ---
DATE: 07/29/2019 SUBJECTIVE: He is resting in bed. He has continued to have nausea and vomiting. He is throwing up about 5 times a day. No blood. He is moving his bowels. He denies any fevers, rigors or chills. OBJECTIVE: Temperature of 97.4, pulse rate of 83, respiratory rate 18, blood pressure 142/72, saturating 94% on 2 L nasal cannula. Body weight of 200 pounds, BMI 27.9 kg/m2. General appearance: Moderately built, lying in bed, in no acute distress. HEENT: No pallor. No icterus. Neck is supple. Abdomen is obese, soft, nontender, nondistended. No guarding.Extremities: No cyanosis or clubbing. He has paraplegia from a back injury. Neurologic- bermudez, he is alert, awake, oriented x3. LABORATORY DATA: Hemoglobin and hematocrit are 13.2 and 38.4, white count of 5.23, platelet count of 215,000. Sodium 141, potassium 3.4, chloride 102, bicarbonate 29, anion gap 10, BUN of 7, creatinine of 0.9, glucose of 86, calcium 8.9, phosphorus 4.5, albumin of 3.2. Urine culture: No growth. Flu screen is negative. Blood culture x2 negative at 48 hours. ASSESSMENT AND PLAN: 1. Multifocal bilateral pneumonia secondary to aspiration pneumonia. He will continue antibiotic treatment. He is on clindamycin and cefepime day 4. 2. Reflux disease with evidence of mild esophagitis and gastritis on recent esophagogastroduodenoscopy. He will continue proton pump inhibitors. 3. Schatzki ring, which was dilated during the esophagogastroduodenoscopy. His swallowing has improved. He continues to have nausea and vomiting. 4. Nausea and vomiting. We will continue on intravenous Zofran, intravenous Phenergan. We will add Carafate 1 g every 6 hours today. 5. Constipation, improved. He is on MiraLAX and Dulcolax. He is moving his bowels. 6. Mild paraplegia with hyperreflexia secondary to back injury. 7. History of pseudoseizures noted. 8. Chronic pain syndrome. Aware. 9. Deep venous thrombosis prophylaxis with Lovenox. 10. Gastrointestinal prophylaxis with proton pump inhibitors. 11. We may have to see how he does. If he continues to have recurrent nausea and vomiting despite being on all medications, we may have to try Reglan as well. The above was discussed with the patient and the nurse. All questions were answered. Please call us with any questions. cc: MD Eric Moses MD Raphael K. Quansah, MD
[2019-07-29] MEDS: PHENERGAN IV PRN ×2 (18:11→22:01)
[2019-07-29] MEDS ORDERED: MELATONIN PO SCH (21:00)
[2019-07-29] MEDS ORDERED: DESYREL PO SCH (21:00)
[2019-07-29] MEDS: LAMICTAL PO SCH ×2 (21:29→21:36)
[2019-07-29] MEDS: LIORESAL PO SCH ×2 (21:30→21:35)
[2019-07-29] MEDS: NEURONTIN PO SCH ×2 (21:30→21:36)
[2019-07-29] MEDS: CARAFATE LIQUID PO SCH (21:30)
[2019-07-29] MEDS: PERCOCET-5 PO PRN (22:01)
[2019-07-30] MEDS: CARAFATE LIQUID PO SCH ×3 (03:17→13:28)
[2019-07-30] MEDS: CLINDAMYCIN 600 MG/D5W 600 MG/50 ML IVPB IV SCH ×2 (03:18→10:43)
[2019-07-30] MEDS: NS 1,000 ML IV SCH ×2 (03:21→16:39)
[2019-07-30] MEDS: PROTONIX IV SCH ×2 (05:48→06:52)
[2019-07-30] MEDS: SODIUM CHLORIDE 0.9% INJ SCH (05:48)
[2019-07-30] MEDS: PERCOCET-5 PO PRN ×2 (05:48→12:18)
[2019-07-30] MEDS: SYNTHROID PO SCH ×2 (05:48→06:52)
[2019-07-30] MEDS ORDERED: CYMBALTA PO SCH (09:00)
[2019-07-30] MEDS: MUCOMYST 20% INH SCH (09:28)
[2019-07-30] MEDS: XOPENEX NEB INH SCH ×2 (09:28→15:18)
[2019-07-30] MEDS: SYMBICORT 160/4.5 MICROGM INHALER INH SCH (09:28)
[2019-07-30] MEDS: MAXIPIME 2 GM/NS 2 GM/100 ML IVPB IV SCH (10:00)
[2019-07-30] MEDS: MIRALAX PO SCH (10:00)
[2019-07-30] MEDS: DULCOLAX PR SCH (10:01)
[2019-07-30] MEDS: LIORESAL PO SCH (10:01)
[2019-07-30] MEDS: LAMICTAL PO SCH (10:01)
[2019-07-30] MEDS: LOVENOX SUBQ SCH (10:03)
[2019-07-30] MEDS: PHENERGAN IV PRN ×2 (10:13→15:05)
[2019-07-30] MEDS: NEURONTIN PO SCH (10:28)
--- NOTE | 2019-07-30 10:34 | Diag Imaging Result Doc PS360 ---
EXAM: MRI THORACIC SPINE W/O CON HISTORY: previous hx spine trauma TECHNIQUE: MRI thoracic spine without contrast. Axial and sagittal images obtained in multiple sequences. COMPARISON: None. FINDINGS: There is slight curvature to the thoracic spine. No compressed vertebra. No subluxation. No disc herniation or disc fragment. No disc bulge. No spinal stenosis or cord compression. No focal abnormality to the thoracic cord is identified. IMPRESSION: Normal MRI of the thoracic spine. Electronically signed by Flavio Silver 07/30/2019 10:32 AM
--- NOTE | 2019-07-30 10:38 | Diag Imaging Result Doc PS360 ---
EXAM: MRI LUMBAR SPINE W/O CONTRAST HISTORY: previous hx spine trauma TECHNIQUE: MRI lumbar spine without contrast. Axial and sagittal images obtained in multiple sequences. COMPARISON: None. FINDINGS: There is good alignment to the lumbar spine. No compression fracture. No subluxation. No prominent degenerative bone spurs. The conus is at T12-L1. L1-2: Normal disc. No spinal stenosis or cord compression. Neither neural foramen is narrowed. L2-3: Normal disc. No spinal stenosis. Neither neural foramen is narrowed. L3-4: Normal disc. Mild facet hypertrophy. No spinal stenosis. Neither neural foramen is narrowed. L4-5: There is loss of the normal water content. Moderate disc bulge. Possible prior surgery on the left. There is mild facet hypertrophy. Findings result in mild spinal stenosis. Neither neural foramen is narrowed. L5-S1: There is loss of the normal water content. There is a right-sided disc fragment. Possible prior surgery on the right. Mild to moderate spinal stenosis and mild narrowing of the right neural foramen. No narrowing of the left neural foramen. IMPRESSION: Bulging disc at L4-5 and L5-S1 with a disc fragment on the right at L5-S1. Electronically signed by Flavio Silver 07/30/2019 10:36 AM
--- NOTE | 2019-07-30 10:41 | Diag Imaging Result Doc PS360 ---
EXAM: MRI CERVICAL SPINE W/O CON HISTORY: previous hx spine trauma TECHNIQUE: MRI cervical spine without contrast. Axial and sagittal images obtained in multiple sequences. COMPARISON: None. FINDINGS: There is good alignment to the cervical spine. No precervical soft tissue swelling. No subluxation. No degenerative bone spurring. No focal abnormality to the cervical cord. C2-3: Normal disc. No spinal stenosis or cord compression. Neither neural foramen is narrowed. C3-4: Normal disc. No spinal stenosis or cord compression. Neither neural foramen is narrowed. C4-5: Normal disc. No spinal stenosis or cord compression. Mild bony narrowing of the left neural foramen. C5-6: Normal disc. No spinal stenosis or cord compression. Neither neural foramen is narrowed. C6-7: Normal disc. No spinal stenosis or cord compression. Neither neural foramen is narrowed. C7-T1: Normal disc. No spinal stenosis or cord compression. Neither neural foramen is narrowed. No disc herniation. No disc fragment. IMPRESSION: Normal MRI of the cervical spine. Electronically signed by Flavio Silver 07/30/2019 10:38 AM
--- NOTE | 2019-07-30 10:47 | Diag Imaging Result Doc PS360 ---
EXAM: MRI BRAIN W/WO CONTRAST HISTORY: AMS with aspirations/ ? seizures TECHNIQUE: MRI brain with and without intravenous contrast. Axial, sagittal, and coronal images obtained in multiple sequences. These are followed by post contrasted axial and coronal images. COMPARISON: None. FINDINGS: No recent infarct. No mass or midline shift. No enhancing lesion on the post contrasted images. No hydrocephalus. No epidural or subdural fluid collection. Normal orbits. Moderate right sphenoid mucosal thickening. No sinus opacification. IMPRESSION: 1.No recent infarct or mass 2.Right sphenoid sinusitis Electronically signed by Flavio Silver 07/30/2019 10:45 AM
--- NOTE | 2019-07-30 12:07 | GASTROENTEROLOGY PROGRESS NOTE ---
DATE: 07/30/2019 ATTENDING PHYSICIAN: Dr. Tai. SUBJECTIVE: Patient resting in bed. So far today he is feeling better. He has just come back from MRI of the back. On review of the MRIs, his MRI of thoracic spine is normal. His lumbar spine MRI showing bulging disk at L4-L5 and L5-S1 with disk fragment on the right at L5-S1. Cervical MRI showed normal MRI of the cervical spine. MRI of the brain showed no recent infarct or mass and right sphenoid sinusitis. The patient has not moved his bowels today so far. OBJECTIVE: Vital signs: Temperature 97.7 degrees, respiratory rate 16, blood pressure 129/73, saturating 100% on 2 L nasal cannula. Body weight of 200 pounds, BMI 27.9 kg/m2. General: Moderately-built, lying in bed, in no acute distress. HEENT: No pallor. No icterus. Neck: Supple. Abdomen: Soft, nontender, nondistended. No guarding or rebound. Extremities: No cyanosis, clubbing. Neurologic: Alert, awake, oriented x3. LABORATORY DATA: Hemoglobin and hematocrit is 13.2 and 38.4, white count of 5.23, platelet count of 215,000. Sodium 141, potassium 3.4, chloride 102, bicarb of 29, anion gap 10, BUN of 7, creatinine 0.9, glucose of 86, calcium is 8.9, phosphorus 4.5, and albumin of 3.2. IMPRESSION AND PLAN: 1. Multifocal bilateral pneumonia secondary to aspiration pneumonia. He is on antibiotics. 2. Reflux disease with evidence of recent esophagitis and gastritis on recent EGD. We will continue PPIs for 90 days and then switch to Pepcid twice daily as needed. 3. Schatzki ring during the EGD which was dilated with 48-Bermudian dilator. His swallowing has improved. 4. Nausea and vomiting. He continues on Zofran, Phenergan and we have added Carafate yesterday. We will see the response. 5. Constipation. He will continue on MiraLAX and Dulcolax. Has not moved his bowels so far today. 6. Mild paraplegia. His MRI of the spine was reviewed, which showed evidence of L5-S1, L4-L5 disk protrusion and a small disk fragment to the right. This will be addressed by primary care team. 7. History of pseudoseizures noted. 8. Chronic pain syndrome. Aware. 9. Deep vein thrombosis prophylaxis with Lovenox. 10. Gastrointestinal prophylaxis with PPIs. We will follow along. The above plans were discussed with the patient and all questions answered. Please call with any further questions. cc: MD Eric Moses MD Raphael K. Quansah, MD MTDD
--- NOTE | 2019-07-30 13:26 | DISCHARGE SUMMARY ---
ADMISSION DATE: 07/25/2019 DISCHARGE DATE: 07/30/2019 DISPOSITION: Back to [facility]. CONSULTATION DURING THIS ADMISSION: GI was consulted. The patient was seen by Dr. Thompson. INVASIVE PROCEDURE DONE DURING THIS ADMISSION: EGD was done which showed a Schatzki ring in the lower third of the esophagus. This was dilated. There was a reflux esophagitis. There was some gastritis and bile in the stomach. The duodenum was unremarkable. IMAGING STUDIES OF SIGNIFICANCE: 1. A chest x-ray on admission showed mild vascular prominence. No pneumonia. 2. A CTA of the lungs showed no large PE, but there was right lung nodular infiltrates, cardiomegaly, and splenomegaly. 3. Multiple x-rays were done subsequently. A KUB showed prominent constipation. 4. MRI of the brain showed no recent infarction or mass. There was a right sphenoid sinusitis. 5. An MRI of the cervical spine showed normal spine. 6. An MRI of the lumbar spine showed a bulging disk at L4-L5 and L5-S1 with disk fragment on the right of L5-S1. 7. The thoracic spine showed a normal MRI. ADMISSION DIAGNOSES: 1. Suspected aspiration pneumonia. 2. Chronic back pain. DIAGNOSES AT THE TIME OF DISCHARGE: 1. Multifocal bilateral pneumonia secondary to aspiration pneumonitis. The patient is on antibiotics. This will be switched to oral. 2. Hypercarbic respiratory failure on admission, resolved. 3. Reflux esophagitis and gastritis associated with Schatzki ring. The patient is status post esophagogastroduodenoscopy with dilation. He is currently on proton pump inhibitor. Seems to be doing well. 4. Constipation, improved with bowel regimen. We will continue. 5. Chronic lower back pain. The patient is status post surgeries to his back in the past. Current MRI of the lumbar spine shows a bulging disk at L4-L5 and L5-S1. Mr. Pelayo has been advised to follow up with Neurosurgery [facility] at [facility]. Dr. Simon's contact will be provided to him. 6. Mild paraplegia with hyperreflexes of the lower extremities, most likely due to the lumbar stenosis. The patient has been advised to continue to follow up with Neurosurgery. 7. History of pseudoseizures. The patient was diagnosed with this I understand when he was in the hospital in [place]. He is on Lamictal. However, this morning he tells me that he has never been told that he has seizures or pseudoseizures and that this was probably a miscommunication. However, I have advised that he follow up with Dr. Spain on outpatient basis. 8. Severe constipation, most likely due to chronic pain medications (narcotics). The patient has been started on a regimen. He did have multiple bowel movements during the hospital course. 9. Hypothyroidism. We will continue with his home supplements. 10. Hypertension, controlled. 11. Polypharmacy with multiple psychotropic medications. PRESENTING COMPLAINT: Aspiration. HISTORY OF PRESENT COMPLAINT: Mr. Pelayo is a 29-year-old gentleman who is living in a alf at his age, came in because he thinks he was dreaming that he has been aspirating and when he woke up he could barely breathe. His temperature was about 104, was brought into the emergency room where he was evaluated and found on a CT scan that he probably has some chemical aspiration pneumonitis. He was admitted for further medical care. HOSPITAL COURSE: Mr. Pelayo was admitted initially to the ICU on close monitoring because he did have another episode of questionable aspiration on the floor. He was started on aspiration precaution and broad-spectrum antibiotics. The patient was evaluated was evaluated by GI, and a decision was made to do an endoscopy, which revealed Schatzki ring. This was dilated, and subsequently Mr. Pelayo was observed in the ICU. Per the ICU nurse, it appears that Mr. Pelayo on occasion tried to provoke his vomiting on his own by sticking his finger down his throat. Over here on the floor, he seems to be doing okay. He takes all his medications and he does not vomit. However, per the nursing staff, he has not been seen to be eating. This morning he refers to be doing okay. We did go over his MRI report and advised him that he needs to follow up with the physician who did a surgery on his lower back a couple years ago, but he said that that physician discharged him, and I did advise him that he should then follow up with neurosurgery here in [place], Dr. Alec Simon. Information will be provided to him. However, if he desired to follow up with a different neurosurgeon that will be okay, but he just needs to follow up. Mr. Pelayo also has documentation, according to the son, has had documentation in the past by his mother that he has pseudoseizures. However, his home medications include Lamictal, which will suggest that he has been treated for seizures before, but he said he had he has never been treated for seizures and that he was not willing to be taking the Lamictal. I have advised that he follows up with Dr. Spain. Dr. Spain has seen him in the past here in the hospital. We think Mr. Pelayo is clinically stable to go back to the alf. I understand from the socially responsible investment adviser that [place] is working out a tentative housing scheme for him instead of being in the alf. However, for now he will need to be in the alf. All the discharge instructions, including aspiration precautions, have been discussed with him. GI did dictate that Mr. Pelayo be initiated on Reglan to help with his dyspeptic syndrome and the possible gastroparesis, so this has been started and side effects have all been discussed with him, and he voiced understanding. TIME SPENT: The time spent for discharge is 40 minutes. cc: MD Alec Valencia III, MD Dr. Jackson Raphael K. Quansah, MD
[2019-07-30 15:38] VITALS: BP 132/76
== END 2019-07-30 17:49 | DRG 871 ==
LOC: SUPCPDRO → ED 06:00 → EDIPHOLD 10:05 → SUATTDRO 10:05 → 1N 11:44 → ICU 18:18 → 3N 07-29 13:55
PROVIDERS: ATTEND Internal Medicine